=== PATIENT | male | born 1980 | race Caucasian/White ===

== ENCOUNTER 2024-09-08 09:12 | Outpatient (CLI) | payer OTHER, SELFPAY ==
--- NOTE | ~2024-09-08 | US_ITS ---
EXAMINATION: US soft tissue UE LT DATE: 09/08/2024 09:28 INDICATION: Left upper limb localized swelling, mass and lump. TECHNIQUE: Multiple grayscale and Doppler ultrasound images of the left upper limb were obtained. COMPARISON: None FINDINGS: There are 2 hyperechoic subcutaneous masses in the patient's area of concern in left upper arm measuring 1.1 x 0.3 x 0.9 cm and 1.0 x 0.3 x 1.4 cm, respectively. IMPRESSION: 1. Small subcutaneous masses in the patient's areas of concern in left upper arm. These findings are nonspecific, but are most likely inflammation. Reviewed, dictated and finalized at location A. IMPRESSION: 1. Small subcutaneous masses in the patient's areas of concern in left upper ar m. These findings are nonspecific, but are most likely inflammation.
== END 2024-09-08 09:13 | disposition home or self-care (01) ==
LOC: MICIMG 09:13
PROVIDERS: PCP Physician Assistant; Visit Provider Physician Assistant
DX: R22.9 Localized swelling, mass and lump, unspecified (principal)
CPT/HCPCS: 76882

== ENCOUNTER 2025-11-15 00:53 | Day surgery (SDC) | payer OTHER, SELFPAY ==
--- OUTSIDE RECORDS SUMMARY | 2020-01-19 01:00 | XMS_ITS | Continuity of Care Document ---
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 Name Role Phone Jaquelin Gabriel PT Unavailable Unavailable Procedures Procedure Date Progress Note Therapeutic Activities Neuromuscular Re-Ed Therapeutic Exercise Hot or Cold Pack Manual Therapy Ultrasound Therapeutic Activities Neuromuscular Re-Ed Therapeutic Exercise Manual Therapy Hot or Cold Pack Ultrasound Therapeutic Activities Neuromuscular Re-Ed Therapeutic Exercise Manual Therapy Hot or Cold Pack Ultrasound Therapeutic Activities Neuromuscular Re-Ed Therapeutic Exercise Manual Therapy Hot or Cold Pack Ultrasound Therapeutic Activities Neuromuscular Re-Ed Therapeutic Exercise Manual Therapy Hot or Cold Pack Ultrasound Neuromuscular Re-Ed Therapeutic Exercise Manual Therapy Hot or Cold Pack Ultrasound Neuromuscular Re-Ed Therapeutic Exercise Manual Therapy Hot or Cold Pack Ultrasound PT Evaluation Low Complexity Neuromuscular Re-Ed Therapeutic Exercise Hot or Cold Pack Manual Therapy Ultrasound Advance Directives Directive Yes / No Effective Date File Name No Information Encounters Encounter Description Practice Location Reason(s) For Visit Diagnoses Date Provider Providers Copied on Encounter [facility], [place], [place], [id number], [place] tel:[phone] [facility] No Information Morrill Jaquelin. . [facility], [place], [place], [id number], [place] tel:[phone] [facility] No Information Morrill Jaquelin. . [facility], [place], [place], [id number], [place] tel:[phone] [facility] No Information Morrill Jaquelin. . [facility], [place], [place], [id number], [place] tel:[phone] [facility] No Information Morrill Jaquelin. . [facility], [place], [place], [id number], [place] tel:[phone] [facility] No Information Morrill Jaquelin. . [facility], [place], [place], [id number], [place] tel:[phone] [facility] No Information Morrill Jaquelin. . [facility], [place], [place], [id number], [place] tel:[phone] [facility] No Information Morrill Jaquelin. . [facility], [place], [place], [id number], [place] tel:[phone] [facility] No Information Nery HammerAngel . Family History Family Member Type Diagnosis Age At Onset No Information Payers Payer name Insurance type Covered alliance party ID Jacquelyn tim(s) [employer] CI [id number] Social History Type Description Quantity Date Captured Comments Sex Male Smoking Status No Information Chief Complaint And Reason For Visit No Information Reason For Referral Reason For Referral No Information History Of Present Illness Encounter Date Complaint History Of Prese nt Illness No Information Functional Status Date Functional Assessmen t No Information Instructions Date Instruction Additional Infor suzie Giving encouragement to exercise Related to Overweight Assessments Type Assessment Date No Information Patient Care Teams Name Effective Dates (start - stop) Status Members No Information
[2025-11-12 08:33] VITALS: BMI 25.8
--- NOTE | 2025-11-12 08:42 | SUR.PREOP ---
[facility] has started construction of its new state of the art ER which will open Spring 2026. With this, we anticipate parking may be a challenge for some our surgical patients and families. Parking spaces are limited but are available for all Surgical, obstetrics, and ER patients sharing this lot. If you arrive and find you are having a hard time finding a parking space, please note that we understand the challenges, please drive around the hospital and park near Hospital Entrance 1. When you enter this entrance, you can ask a volunteer to direct or take you back to the surgical waiting area to check in. We appreciate everyone?s understanding of these expected challenges while we build for your future. Report to the Outpatient Waiting Room, entrance under the green pavilion located [address], at time 1230__ on date ___11/15/25____. Planned Procedure Time: ____1430____.? Time changes happen often and if your time is changed the preop area will call you the afternoon before. - You and your visitor will be asked to self-screen and do not enter if you have any COVID symptoms. Please call surgeon if you need to reschedule. - A mask is optional within the hospital at this time. Patients may have clear liquids (water, carbonated beverages, clear teas, apple juice) until 3 hours prior to surgery with a maximum of 20 ounces. - No food from midnight until time of surgery and no smoking, or chewing tobacco (or any form of nicotine). No chewing gum, candy or mints. Take only the following medications with a SIP of water on the morning of surgery: states takes everything at night DO NOT STOP ANY OF YOUR OTHER PRESCRIPTION MEDICATIONS PRIOR TO SURGERY EXCEPT THE FOLLOWING Hold all vitamins and supplements for 3 days per anesthesiologist. Medications to discontinue per physician NA Date to take last dose Please no make-up, nail norwegian, hairspray, perfume, deodorant, or body powder the day of surgery.? No jewelry (including any body piercings) or valuables the day of surgery, leave them at home.? Please take a shower or bath the night before, or the morning of, surgery with an antibacterial soap.? Wear comfortable, loose fitting clothing.? Children are encouraged to wear pajamas. - Jewelry must be removed prior to entering the operating room.? Rings and piercings that are not removed may be cut off. - The hospital will not accept responsibility for valuables.? - Please leave all valuables, including medications, at home the day of surgery. If you are going home after surgery, a licensed full service vending driver must drive you home.? - NO public transportation without another adult if you receive anesthesia. - We recommend that an adult stay with you for 24 hours following discharge. - We also recommend that you do not drive, make important decision, drink alcoholic beverages, or take any drugs that were not prescribed by your health care provider for at least 24 hours after your discharge time. Follow any additional instructions given to you from your surgeon. Telephone instructions given to ___patient Storm and asked if any additional questions and then verbalized understanding. Patient advised to call surgeon office or pre surgery nurse liaison [phone] if any additional questions.
[2025-11-15] VITALS (8 sets, daily range): BP systolic 103–144; BP diastolic 59–99; PULSE 78–94; RESP 12–20; TEMP 36.2–36.4; O2SAT 95–100; BMI 26.7
--- OUTSIDE RECORDS SUMMARY | 2025-11-15 00:54 | XMS_ITS | Data Portability ---
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 Not available 06/22/2024 17:10:37 09/06/2025 09/06/2025 Colonoscopy : Due Eye exams and dental visits up-to-date Lab orders due Not available 09/06/2025 15:01:19 Plan of Treatment Reminders Order Date Submit Date Provider Last Modified By Organization Details Last Modified Time Details Appointments ANY 15 2025 07:30A M LUCIA Valentine Not available Not available Not available Lab TSH + free T4, serum 2024 [employer] [facility], [address], [place], [address], 09/25/2025 03:10:43 lipid panel, serum 2024 025 [employer] [facility], [address], [place], [address], 09/25/2025 03:10:42 CBC w/ auto diff 2024 025 [employer] [facility], [address], [place], [address], 09/25/2025 03:10:44 CMP, serum or plasma 2024 025 [facility], [address], [place], [address], 09/25/2025 03:10:43 urinalysi s, dipstick, reflex micro 2024 025 [facility], [address], [place], [address], 09/25/2025 03:10:45 PSA, serum or plasma 2024 025 [facility], [address], [place], [address], 09/25/2025 03:10:44 HbA1c (hemoglob in A1c), blood 2024 025 [facility], [address], [place], [address], 09/25/2025 03:10:45 TSH + free T4, serum 2023 024 [facility], [address], [place], [address], 07/16/2024 11:56:14 CBC w/ auto diff 2023 024 [facility], [address], [place], [address], 07/16/2024 11:56:15 CMP, serum or plasma 2023 024 [facility], [address], [place], [address], 07/16/2024 11:56:14 vitamin B12 + folate, serum or blood 2023 024 [facility], [address], [place], [address], 07/16/2024 11:56:15 urinalysi s, dipstick, reflex micro 2023 024 [employer] [facility], [address], [place], [address], 07/16/2024 11:56:15 lipid panel, serum 2023 024 [facility], [address], [place], [address], 07/16/2024 11:56:14 PSA, serum or plasma 2023 024 [facility], [address], [place], [address], 07/16/2024 11:56:15 HbA1c (hemoglob in A1c), blood 2023 024 [employer] [facility], [address], [place], [address], 07/16/2024 11:56:14 Referral general surgeon referral 2024 025 [facility], [address] [place] [address] [address], [place], [address], 10/08/2025 12:46:13 Procedures colonosco py screening (PROC) 2024 025 [email or web address] [facility], [facility] [address], [place], [address], 11/09/2025 16:23:25 Surgeries None recorded. Imaging US, upper arm 2023 024 [email or web address] [facility], [address], [address], [place], [address], 10/05/2024 16:52:15 Medication Orders fenofibra te 54 mg tablet 2024 025 [id number], [address] [place], [place], [id number], 09/06/2025 14:17:10 Medrol (Lele) 4 mg tablets in a dose pack [address] [facility][id number], [address] [place], [place], [id number], 07/19/2025 13:08:[address] 10 mg tablet [address] [facility] #[id number], [address] [place], [place], [id number], 06/22/2024 17:07:20 albuterol sulfate HFA 90 mcg/actua tion aerosol inhaler 2023 024 [facility] #[id number], [address] [place], [place], [id number], 06/22/2024 17:07:18 Patient TargetsNo targets recorded. Patient Instructions Encounter Date Encounter Id Patient Instructions Last Modified By Organization Details Last Modified Time 06/22/2024 [id number] A healthy lifestyle: care instructions Not available 06/22/2024 17:07:10 01/11/2025 [id number] golfer's elbow: exercises Not available 01/11/2025 14:11:12 A healthy lifestyle: care instructions Not available 01/11/2025 14:11:12 Reason for Referral General Surgeon Referral for Umbilical hernia umbilical hernia, new onset. smaller, I have held off on imaging to get surgical opinion first. Referring Physician: Sarah Haskins, Internal Medicine, Encounter Date: 09/06/2025 Results Created Date Observation Date Name Description Value Unit Range Abnormal Flag Note LastModifiedBy Organization Detail LastModifiedTime 09/24/2009/25/2025 LIPID PANEL WITH RATIO S cholesterol, total 188 mg/dL <200 normal Not Available [facility] [address] [address] [place], [address], 09/25/2025 03:10:42 09/24/2009/25/2025 LIPID PANEL WITH RATIO S HDL cholesterol 48 mg/dL > or = 40 normal Not Available [facility] [address] [address] [place], [address], 09/25/2025 03:10:42 09/24/2009/25/2025 LIPID PANEL WITH RATIO S triglyceride s 81 mg/dL <150 normal Not Available [facility] [address] [address] [place], [address], 09/25/2025 03:10:42 09/24/2009/25/2025 LIPID PANEL WITH RATIO S LDL-choleste rol 122 mg/dL _(chris c) high Refer ence range : <100 Kirit able range <100 mg/dL for prima ry preve ntion ; <70 mg/dL for patie nts with CHD or diabe tic patie nts with > or = 2 CHD risk facto rs. LDL-C is now calcu lated using the Mita thurston-[facility] calcu sunshine n, which is a valid ated novel bevo d yungi rachel hodge r accur acy than the Fried grover equat ion in the estim ation of LDL-C . Mita thurston SS et al. DAYLIN. 2013; 310(1 9): 2061- 2068 (http ://ed ucati on.Qu Jyoti Corban Direct. com/f aq/FA Q164) Not Available [facility] [address] [place], [address], 09/25/2025 03:10:42 09/24/2009/25/2025 LIPID PANEL WITH RATIO S chol/HDLC ratio 3.9 (calc ) <5.0 normal Not Available [facility] [address] [place], [address], 09/25/2025 03:10:42 09/24/2009/25/2025 LIPID PANEL WITH RATIO S LDL/HDL ratio 2.5 (calc ) Below [place] Risk: <2.28 [place] Risk: 2.29- 4.90 Moder ate Risk: 4.91- 7.12 High Risk: >7.13 Not Available [address], [address], 09/25/2025 03:10:42 09/24/2009/25/2025 LIPID PANEL WITH RATIO S non HDL cholesterol 140 mg/dL _(chris c) <130 high For patie nts with diabe jose enrique plus 1 major ASCVD risk facto r, treat ing to a non-H DL-C goal of <100 mg/dL (LDL- C of <70 mg/dL ) is mansi terrell thernidhi peuti c optio n. Not Available [address], [address], 09/25/2025 03:10:42 09/24/2009/25/2025 TSH+F REE T4 TSH 1.42 mIU/L 0.40-4 .50 normal Not Available [address], [address], 09/25/2025 03:10:43 09/24/2009/25/2025 TSH+F REE T4 T4, free 1.3 NG/dL 0.8-1. 8 normal Not Available [address], [address], 09/25/2025 03:10:43 09/24/2009/25/2025 COMPR EHENS MARYSOL METAB OLIC PANEL glucose 99 mg/dL 65-99 normal Fasti ng refer ence inter yarelis Not Available [address], [address], 09/25/2025 03:10:43 09/24/2009/25/2025 COMPR EHENS MARYSOL METAB OLIC PANEL urea nitrogen (BUN) 21 mg/dL 7-25 normal Not Available [address] [address] [place], [address], 09/25/2025 03:10:43 09/24/2009/25/2025 COMPR EHENS MARYSOL METAB OLIC PANEL creatinine 1.19 mg/dL 0.60-1 .29 normal Not Available [address], [address], 09/25/2025 03:10:43 09/24/2009/25/2025 COMPR EHENS MARYSOL METAB OLIC PANEL eGFR 76 mL/mi n/1.7 3m2 > or = 60 normal Not Available [address], [address], 09/25/2025 03:10:43 09/24/2009/25/2025 COMPR EHENS MARYSOL METAB OLIC PANEL BUN/creatini ne ratio SEE NOTE: (calc ) 6-22 Not Repor valente: BUN and Creat inine are withi n refer ence range . Not Available [address], [address], 09/25/2025 03:10:43 09/24/20 25 09/25/2025 COMPR EHENS MARYSOL METAB OLIC PANEL sodium 138 mmol/ L 135-14 6 normal Not Available [address], [address], 09/25/2025 03:10:43 09/24/2009/25/2025 COMPR EHENS MARYSOL METAB OLIC PANEL potassium 4.2 mmol/ L 3.5-5. 3 normal Not Available [address], [address], 09/25/2025 03:10:43 09/24/2009/25/2025 COMPR EHENS MARYSOL METAB OLIC PANEL chloride 102 mmol/ L 98-110 normal Not Available [address], [address], 09/25/2025 03:10:43 09/24/2009/25/2025 COMPR EHENS MARYSOL METAB OLIC PANEL carbon dioxide 29 mmol/ L 20-32 normal Not Available [address], [address], 09/25/2025 03:10:43 09/24/2009/25/2025 COMPR EHENS MARYSOL METAB OLIC PANEL calcium 9.5 mg/dL 8.6-10 .3 normal Not Available [address], [address], 09/25/2025 03:10:43 09/24/2009/25/2025 COMPR EHENS MARYSOL METAB OLIC PANEL protein, total 6.4 g/dL 6.1-8. 1 normal Not Available [address], [address], 09/25/2025 03:10:43 09/24/2009/25/2025 COMPR EHENS MARYSOL METAB OLIC PANEL albumin 4.3 g/dL 3.6-5. 1 normal Not Available [address], [address], 09/25/2025 03:10:43 09/24/2009/25/2025 COMPR EHENS MARYSOL METAB OLIC PANEL globulin 2.1 g/dL_ (calc ) 1.9-3. 7 normal Not Available [address], [address], 09/25/2025 03:10:43 09/24/2009/25/2025 COMPR EHENS MARYSOL METAB OLIC PANEL albumin/glob ulin ratio 2.0 (calc ) 1.0-2. 5 normal Not Available [address], [address], 09/25/2025 03:10:43 09/24/2009/25/2025 COMPR EHENS MARYSOL METAB OLIC PANEL bilirubin, total 0.6 mg/dL 0.2-1. 2 normal Not Available [address], [address], 09/25/2025 03:10:43 09/24/2009/25/2025 COMPR EHENS MARYSOL METAB OLIC PANEL alkaline phosphatase 42 U/L 36-130 normal Not Available [address], [address], 09/25/2025 03:10:43 09/24/2009/25/2025 COMPR EHENS MARYSOL METAB OLIC PANEL AST 21 U/L 10-40 normal Not Available [address], [address], 09/25/2025 03:10:43 09/24/2009/25/2025 COMPR EHENS MARYSOL METAB OLIC PANEL ALT 20 U/L 9-46 normal Not Available [address], [address], 09/25/2025 03:10:43 09/24/2009/25/2025 CBC (INCL UDES DIFF/ PLT) white blood cell count 3.9 thous and/u L 3.8-10 .8 normal Not Available [address], [address], 09/25/2025 03:10:44 09/24/2009/25/2025 CBC (INCL UDES DIFF/ PLT) red blood cell count 4.65 maria elena on/uL 4.20-5 .80 normal Not Available [address], [address], 09/25/2025 03:10:44 09/24/2009/25/2025 CBC (INCL UDES DIFF/ PLT) hemoglobin 15.8 g/dL 13.2-1 7.1 normal Not Available [address], [address], 09/25/2025 03:10:44 09/24/2009/25/2025 CBC (INCL UDES DIFF/ PLT) hematocrit 46.9 % 38.5-5 0.0 normal Not Available [address], [address], 09/25/2025 03:10:44 09/24/2009/25/2025 CBC (INCL UDES DIFF/ PLT) MCV 100.9 fL 80.0-1 00.0 high Not Available [address], [address], 09/25/2025 03:10:44 09/24/2009/25/2025 CBC (INCL UDES DIFF/ PLT) MCH 34.0 pg 27.0-3 3.0 high Not Available [address], [address], 09/25/2025 03:10:44 09/24/2009/25/2025 CBC (INCL UDES DIFF/ PLT) MCHC 33.7 g/dL 32.0-3 6.0 normal For adult s, a sligh t decre ase in the calcu lated MCHC value (in the range of 30 to 32 g/dL) is most likel y not clini lilly signi ficbert t; burke er, it shoul d be inter prete d with cauti on in corre latio n with other red cell jose eters and the patie nt's clini chris condi tion. Not Available [address], [address], 09/25/2025 03:10:44 09/24/2009/25/2025 CBC (INCL UDES DIFF/ PLT) RDW 12.3 % 11.0-1 5.0 normal Not Available [address] [place], [address], 09/25/2025 03:10:44 09/24/2009/25/2025 CBC (INCL UDES DIFF/ PLT) platelet count 264 thous and/u L 140-40 0 normal Not Available [address], [address], 09/25/2025 03:10:44 09/24/2009/25/2025 CBC (INCL UDES DIFF/ PLT) MPV 9.3 fL 7.5-12 .5 normal Not Available [address], [address], 09/25/2025 03:10:44 09/24/2009/25/2025 CBC (INCL UDES DIFF/ PLT) absolute neutrophils 2469 cells /uL 1500-7 800 normal Not Available [address], [address], 09/25/2025 03:10:44 09/24/2009/25/2025 CBC (INCL UDES DIFF/ PLT) absolute lymphocytes 901 cells /uL 850-39 00 normal Not Available [address], [address], 09/25/2025 03:10:44 09/24/2009/25/2025 CBC (INCL UDES DIFF/ PLT) absolute monocytes 390 cells /uL 200-95 0 normal Not Available [address], [address], 09/25/2025 03:10:44 09/24/2009/25/2025 CBC (INCL UDES DIFF/ PLT) absolute eosinophils 121 cells /uL 15-500 normal Not Available [address], [address], 09/25/2025 03:10:44 09/24/2009/25/2025 CBC (INCL UDES DIFF/ PLT) absolute basophils 20 cells /uL 0-200 normal Not Available [address], [address], 09/25/2025 03:10:44 09/24/2009/25/2025 CBC (INCL UDES DIFF/ PLT) neutrophils 63.3 % normal Not Available [address], [address], 09/25/2025 03:10:44 09/24/2009/25/2025 CBC (INCL UDES DIFF/ PLT) lymphocytes 23.1 % normal Not Available [address], [address], 09/25/2025 03:10:44 09/24/2009/25/2025 CBC (INCL UDES DIFF/ PLT) monocytes 10.0 % normal Not Available [address], [address], 09/25/2025 03:10:44 09/24/2009/25/2025 CBC (INCL UDES DIFF/ PLT) eosinophils 3.1 % normal Not Available [address], [address], 09/25/2025 03:10:44 09/24/2009/25/2025 CBC (INCL UDES DIFF/ PLT) basophils 0.5 % normal Not Available [address], [address], 09/25/2025 03:10:44 09/24/2009/25/2025 PSA, TOTAL PSA, total 1.88 NG/mL < or = 4.00 normal The total PSA value from this assay syste m is stand ardiz ed again st the WHO stand thomas. The test resul t will be appro ximat minerva 20% lower when jose red to the equim olar- stand ardiz ed total PSA (Baeza man Coult er). Jose rison of seria l PSA resul ts shoul d be inter prete d with this fact in mind. This test was perfo rmed using the Sieme ns chemi lumin escen t metho d. Value s obtai brooke from diffe rent assay metho ds canno t be used inter archuleta eably . PSA level s, regar dless of value , shoul d not be inter prete d as absol will evide nce of the prese nce or absen ce of disea se. Not Available [facility] [address] [place], [address], 09/25/2025 03:10:44 09/24/2009/25/2025 HEMOG LOBIN A1C hemoglobin A1C 5.2 %_of_ total _HGB <5.7 normal For the purpo se of scremelchor saini for the prese nce of diabe jose enrique: <5.7% Consi stent with the absen ce of diabe jose enrique 5.7-6 .4% Consi stent with incre ased risk for diabe jose enrique (pred iabet es) > or =6.5% Consi stent with diabe jose enrique This assay resul t is consi stent with a decre ased risk of diabe jose enrique. Curre ntly, no conse nsus exist s mallory ramos use of hemog lobin A1c for diagn osis of diabe jose enrique in child romi. Accor ding to Ameri can Diabe jose enrique Assoc iatio n (ADA) guide lines , hemog lobin A1c <7.0% repre sents optim al contr ol in non-p regna nt diabe tic patie nts. Diffe rent metri cs may apply to speci fic patie nt popul ation s. Stand ards of Medic al Care in Diabe jose enrique(A DA). Not Available [facility] [address] [place], [address], 09/25/2025 03:10:44 09/24/2009/25/2025 URINA LYSIS REFLE X color YELLOW yellow normal Not Available [facility] [address] [place], [address], 09/25/2025 03:10:45 09/24/2009/25/2025 URINA LYSIS REFLE X appearance CLEAR clear normal Not Available [address], [address], 09/25/2025 03:10:45 09/24/2009/25/2025 URINA LYSIS REFLE X specific gravity 1.019 1.001- 1.035 normal Not Available [address], [address], 09/25/2025 03:10:45 09/24/2009/25/2025 URINA LYSIS REFLE X pH 5.5 5.0-8. 0 normal Not Available [address], [address], 09/25/2025 03:10:45 09/24/2009/25/2025 URINA LYSIS REFLE X glucose NEGATI VE negati ve normal Not Available [address], [address], 09/25/2025 03:10:45 09/24/2009/25/2025 URINA LYSIS REFLE X bilirubin NEGATI VE negati ve normal Not Available [address], [address], 09/25/2025 03:10:45 09/24/2009/25/2025 URINA LYSIS REFLE X ketones NEGATI VE negati ve normal Not Available [address], [address], 09/25/2025 03:10:45 09/24/2009/25/2025 URINA LYSIS REFLE X occult blood NEGATI VE negati ve normal Not Available [address], [address], 09/25/2025 03:10:45 09/24/2009/25/2025 URINA LYSIS REFLE X protein NEGATI VE negati ve normal Not Available [facility] [address] [address] [place], [address], 09/25/2025 03:10:45 09/24/2009/25/2025 URINA LYSIS REFLE X nitrite NEGATI VE negati ve normal Not Available [facility] [address] [address] [place], [address], 09/25/2025 03:10:45 09/24/2009/25/2025 URINA LYSIS REFLE X leukocyte esterase NEGATI VE negati ve normal Not Available [facility] [address] [place], [address], 09/25/2025 03:10:45 09/09/2009/08/2024 US, upper arm No observ ation record ed. [facility] ([facility]) [address], [place], [address], 09/10/2024 12:15:54 Result Notes None recorded. Problems Name Problem SNOMED Code Status Onset Date Resolution Date Notes Provider Name and Address Organization Details Recorded Time Long-term drug therapy Active 2023 LUCIA Valentine Attn: Dhruv g,[address] [facility], [place], [address], [place] [facility] 4 23:05:37 Reactive airway disease 833012387439 Active 2023 LUCIA Valentine Attn: Accountin g,[address] [facility], [place], [address], [place] [facility] 4 23:05:55 Seasonal allergic rhinitis 002326347 Active 2023 LUCIA Valentine Attn: Accountin g,[address] [facility], [place], [address], [place] [facility] 4 23:06:01 Environment al allergy 413364401 Active 2023 LUCIA Valentine Attn: Accountin g,[address] [facility], [place], [address], [place] [facility] 4 23:06:10 Gastroesoph ageal reflux disease without esophagitis 418901851 Active 2023 LUCIA Valentine Attn: Accountin g,[address] [place], [address], [place] [facility] 4 23:06:12 Subcutaneou s nodule 74413719 Active 2023 LUCIA Valentine Attn: Accountin g,[address] [place], [address], [place] [facility] 4 23:06:33 Body mass index 25-29 - overweight 543167354 Active 2023 LUCIA Valentine Attn: Accountin g,[address] [place], [address], [place] [facility] 4 23:06:37 Overweight 595047283 Active 2024 LUCIA Valentine Attn: Dhruv g,[address] [place], [address], [place] [facility] 5 17:21:10 Right medial elbow tendinopath y 0403033833841 09 Active 2024 LUCIA Valentine Attn: Accountin g,[address] [place], [address], [place] [facility] 5 17:21:12 Overweight in adulthood with body mass index of 25 or more but less than 30 480322542 Active 2024 LUCIA Valentine Attn: Dhruv g,[address] [place], [address], [place] [facility] 5 14:16:15 Umbilical hernia 850014049 Active 2024 LUCIA Valentine Attn: Dhruv g,[address] [place], [address], [facility] 15:01:02 Problem Notes None recorded. Procedures Surgical History Date Name Laterality Status Provider Name and Address Organization Details Recorded Time Knee Surgery completed Nathalie Salinas MA [facility] 06/22/2024 16:46:12 Imaging Results None recorded. Procedure Notes None recorded. Medical Equipment None Reported. Allergies No known drug allergies Medications Name Sig Start Date Stop Date Status Note LastModified by Organization Details LastModified Time Medrol (Lele) 4 mg tablets in a dose pack take as directed 07/19 completed Not Available Not Available Not Available metronidazo le 500 mg tablet TAKE 1 TABLET BY MOUTH EVERY 8 HOURS. DO NOT DRINK ANY ALCOHOL WHILE ON ANTIBIOTI C 09/06 completed Not Available Not Available Not Available ciprofloxac in 500 mg tablet TAKE 1 TABLET BY MOUTH EVERY 12 HOURS 09/06 completed Not Available Not Available Not Available montelukast 10 mg tablet TAKE 1 TABLET BY MOUTH DAILY active Not Available Not Available No t Available levofloxaci n 500 mg tablet 06/22 completed Not Available Not Available Not Available albuterol sulfate HFA 90 mcg/actuati on aerosol inhaler INHALE 2 PUFFS BY MOUTH EVERY 4 HOURS NEEDED active Not Available Not Available No t Available fluticasone propionate 50 mcg/actuati on nasal spray,suspe nsion active Not Available Not Available Not Available Prilosec OTC 20 mg tablet,josette yed release Take 1 tablet every day by oral route. active Not Available Not Available No t Available fenofibrate 54 mg tablet TAKE 1 TABLET BY MOUTH EVERY DAY active Not Available Not Available No t Available Vitals Date Recorded Respiratory rate Provider Name a nd Address Organization Details Last Updated DateTime 01/11/2025 16 /min LUCIA Valentine Attn: Accounting,[address] [facility], [place], [address], [facility] 01/11/2025 14:12:00 Date Recorded Body height Body mass index (BMI) Body weight Oxygen saturation Heart rate Systolic And Diastolic Provider Name and Address Organization Details Last Updated DateTime 180.98 cm 27 kg/m2 55016.5 1 g 97 % 77 /min 120/82 mm[Hg] Nathalie Salinas MA [facility] 5 14:00:06 Date Recorded Systolic And Diastolic Provider Name and Address Organization Details Last Updated DateTime 06/22/2024 120/80 mm[Hg] LUCIA Valentine Attn: Accounting,[address] [place], [address], [facility] 06/22/2024 17:05:18 Date Recorded Body height Respiratory rate Body mass index (BMI) Body weight Oxygen saturation Heart rate Systolic And Diastolic Provider Name and Address Organization Details Last Updated DateTime 180.98 cm 20 /min 26.7 kg/m2 30125.4 7 g 98 % 78 /min 118/82 mm[Hg] Nathalie Salinas MA [facility] 16:34:24 Date Recorded Respiratory rate Systolic And Diastolic Provider Name and Address Organization Details Last Updated DateTime 09/06/2025 16 /min 140/90 mm[Hg] LUCIA Valentine Attn: Accounting, [place], [address], [facility] 09/06/2025 14:34:52 Date Recorded Body height Body mass index (BMI) Body weight Oxygen saturation Heart rate Systolic And Diastolic Provider Name and Address Organization Details Last Updated DateTime 180.98 cm 26.5 kg/m2 74013.5 g 97 % 86 /min 122/80 mm[Hg] Nathalie Salinas MA [facility] 14:15:05 Social History Question Answer Notes LastModified by Organizat ion Details LastModified Time Tobacco Smoking Status Former Smoker quit 18 years ago Nathalie Salinas MA null, [facility] 06/22/2024 16:29:54 Do You Have An Advance Directive? No Information not available 06/22/2024 Are You Blind Or Do You Have Difficulty Seeing? No Glasses Information not available 06/22/2024 What Is Your Level Of Caffeine Consumption? Occasional Coffee Information not available 06/22/2024 In The 14 Days Before Symptom Onset, Have You Had Close Contact With A Laboratory-confir med COVID-19 While That Case Was Ill? No Information not available 06/19/2024 In The 14 Days Before Symptom Onset, Have You Had Close Contact With A Person Who Is Under Investigation For COVID-19 While That Person Was Ill? No Information not available 06/19/2024 Have You Been To An Area Known To Be High Risk For COVID-19? No Information not available 06/19/2024 Are You Deaf Or Do You Have Serious Difficulty Hearing? No Left Ear Information not available 06/22/2024 What Type Of Diet Are You Following? REGULAR Information not available 06/22/2024 Are There Any Guns Present In Your Home? No Information not available 06/22/2024 What Was The Date Of Your Most Recent Tobacco Screening? 09/06/2025 Information not available 09/06/2025 What Is Your Current Pack Years? 20-29packyear s Information not available 06/22/2024 Do You Use Your Seat Belt Or Car Seat Routinely? Yes Information not available 06/19/2024 Do You Have Smoke And Carbon Monoxide Detectors In Your Home? Yes Information not available 06/19/2024 How Much Tobacco Do You Smoke? No Information not available 06/22/2024 Do You Use Sunscreen Routinely? Yes Information not available 06/22/2024 Has Tobacco Cessation Counseling Been Provided? Yes Information not available 06/19/2024 On What Date Was Tobacco Cessation Counseling Provided? 09/06/2025 Information not available 09/06/2025 How Many Years Have You Smoked Tobacco? 20 Information not available 06/22/2024 Sex: Male Functional Status Question Answer Note LastModified by Organizat ion Details LastModified Time Do you use any illicit or recreational drugs? No Information not available 06/22/2024 Do you or have you ever used any other forms of tobacco or nicotine? No Information not available 06/22/2024 What is your level of alcohol consumption? Occasional Information not available 06/22/2024 Are you currently employed? Yes Information not available 01/11/2025 Are you able to care for yourself independently? Yes Information not available 06/19/2024 What is your exercise level? Moderate Information not available 06/22/2024 Mental Status None recorded. Family History Relationship Description Onset Age of this Age Resolved Age Notes LastModified by Organization Details LastModified Time Father Hypercholest erolemia tcarterma Not available 2023 16:29:22 Medical History Condition Response Acid Reflux (GERD) Y Cancer Y Asthma Y Allergies Y Immunizations Vaccine Type Date Status Note Provider Nam e and Address Organization Details Recorded Time Influenza, split virus, trivalent, PF 08/27/2024 completed Nathalie Salinas MA [place], [place] - [facility] 01/11/2025 13:58:28 Past Encounters Encounter ID Performer Location Encounter Start Date Encounter Closed Date Diagnosis/Indication Diagnosis SNOMED-CT Code Diagnosis ICD10 Code Diagnosis IMO Codes Diagnosis Note [id number] Iván Hernandez MD [facility] [place] [address] [place] [address] 06/22/2024 16:16:47 06/22/2024 17:40:41 Body mass index 25-29 - overweight 120427802 Z68.26 BMI is 26.7 Overweight 822268120 E66 .3 Subcutaneous nodule 9532 5000 R22.9 Refer for ultrasound of left upper arm to evaluate [address] nodules that are lipoma-lik e in features Adult heal th examination 636076468 Z00.01 Annual wellness exam completed Gastroesop hageal reflux disease without esophagitis 487740470 K21.9 takes prilosec 20mg OTC daily. Very stable Environmental allergy 42 6971646 T78.49XS Treatment as above with Singulair Seasonal a llergic rhinitis 069627687 J30.2 Refill Singulair 10 mg daily for seasonal allergic rhinitis Reactive a irway disease 6486535273 06 J45.909 Refill on albuterol sulfate inhaler for stable reactive airway that is related to environmen j carlos allergy triggers Cholesterol screening 27 9639037 Z13.220 Fasting lipid panel due Screening for malignant neoplasm of prostate 251823840 Z12.5 PSA annual screening due Diabetes m ellitus screening 786187147 Z13.1 A1c annual screening ordered Long-term drug therapy 799823075 Z79.899 cmp, cbc and b12, folate and urinalysis labs are due Thyroid di sorder screening 944747236 Z13.29 Routine thyroid panel ordered [id number] Iván Hernandez MD [facility] [employer] [address] [place] [address] 01/11/2025 13:45:51 01/11/2025 14:19:45 Body mass index 25-29 - overweight 261488224 Z68.26 BMI is 26.7 Overweight 096148086 E66 .3 Right medi al elbow tendinopathy 3145984680 56852 M77.01 Start Medrol Dosepak and exercises given for medial epicondyli tis [id number] Iván Hernandez MD [facility] [employer] [address] [place] [address] 09/06/2025 14:05:32 09/06/2025 14:52:54 Adult health examination 703136511 Z00.01 Annual wellness exam completed Gastroesop hageal reflux disease without esophagitis 605817575 K21.9 takes prilosec 20mg OTC daily. Very stable Seasonal a llergic rhinitis 173932107 J30.2 Refill Singulair 10 mg daily for seasonal allergic rhinitis Environmental allergy 42 7294442 T78.49XS Treatment as above with Singulair Reactive a irway disease 1196704136 06 J45.909 Refill on albuterol sulfate inhaler for stable reactive airway that is related to environmen j carlos allergy triggers Cholesterol screening 27 9845647 Z13.220 Fasting lipid panel due Screening for malignant neoplasm of prostate 825690099 Z12.5 PSA annual screening due Diabetes m ellitus screening 658495726 Z13.1 A1c annual screening ordered Long-term drug therapy 988288852 Z79.899 cmp, cbc and b12, folate and urinalysis labs are due Thyroid di sorder screening 763049050 Z13.29 Routine thyroid panel ordered Mixed hyperlipidemia 267 598630 E78.2 Refill on fenofibrat e 54 mg daily. Due for fasting lipid panel. Overweight in adulthood with body mass index of 25 or more but less than 30 568605963 E66.3 Z68.26 5078459920 BMI is 26.7 Screening for malignant neoplasm of colon 103943139 Z12.11 625930 Refer for baseline colonoscop y screening to [facility] [place] location Umbilical hernia 7587717 07 K42.9 [id number] Refer to general surgery for newer onset of small umbilical hernia defect Health Concerns Section Related Observation LastModified by Organization Detai ls LastModified Time None Recorded Concern Status LastModified by Organization Details LastModified Time None Recorded Advance Directives Directive N: Payers Insurance Date Sequence Insurance Name Policy Number Policy Hadley Covered Member ID Hadley Member ID Guarantor Name 09/06/2025 1 [employer] - [employer] Nadia Pont [id number] OI Storm Pont 09/06/2025 1 [employer] - [employer] - OPEN ACCESS Storm Pont [id number] OI Storm Pont Notes Date Note Type Note Provider Name and Address Organization Details Recorded Time 4 text/htm l Patient is here for annual wellness exam. Patient is due for labs Seasonal allergies and environmental allergies-patient continues to struggle with some symptoms. He does have Singulair 10 mg daily and albuterol sulfate inhaler that he takes for reactive airway that is from his allergies. This regimen usually keeps him pretty controlled.. GERD without esophagitis-patient is stable on Prilosec oewd-ony-acecvki 20 mg daily Subcutaneous nodule in the left upper arm that are small but palpable. He would like to have these looked at LUCIA Valentine Attn: Accounting[address] [place], [address], [facility] 07/01/2024 23:07:09 5 text/htm l Musculoskeletal PainReported by PatientHPIFor quality, patient reportssharpanddull. For severity, patient reportsworsening. For location, patient reportsright elbow. For duration, patient reportspresent <1 month. For timing, patient reportsconstant. For context, patient reportsoveruseandunusual activity. For aggravating factors, patient reportsmovement/positioninga ndtwisting. For associated symptoms, patient reportsno fever,no weak limbs, andno tingling. LUCIA Valentine Attn: Accounting[address] [place], [address], [facility] 01/30/2025 17:21:29 5 text/htm l Patient is here for annual wellness exam. Patient is due for labs Patient is also on male testosterone replacement [facility]. Seasonal allergies and environmental allergies-patient continues to struggle with some symptoms. He does have Singulair 10 mg daily and albuterol sulfate inhaler that he takes for reactive airway that is from his allergies. This regimen usually keeps him pretty controlled.. GERD without esophagitis-patient is stable on Prilosec duab-xui-jkggssk 20 mg daily Patient has a protruding area that is in the last month coming from his belly button area. No injury no straining no change in working out. No discomfort. LUCIA Valentine Attn: Accounting[address] [facility], [place], [address], [facility] 09/06/2025 15:01:35
--- OUTSIDE RECORDS SUMMARY | 2025-11-15 00:54 | XMS_ITS | Clinical Summary ---
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 Name Role Phone Sarah Childers [facility] Pr ovider Allergies No known active allergies Medications fenofibrate (TRICOR) 54 mg tablet Take 1 tablet (54 mg total) by mouth nightly 05/07/2025 Active montelukast (SINGULAIR) 10 mg tablet Take 1 tablet (10 mg total) by mouth daily Active albuterol HFA (PROVENTIL HFA,VENTOLIN HFA,PROAIR HFA) 90 mcg/actuation inhaler Inhale 2 puffs Active Active Problems No known active problems Social History Tobacco Use Types Packs/Day Years Used Date Smoking Tobacco: Never Assessed Sex and Gender Information Value Date Recorded Sex Assigned at Not on file Legal Sex Male 11:13 AM CDT Gender Identity Not on file Sexual Orientation Not on file Last Filed Vital Signs Vital Sign Reading Time Taken Comments Blood Pressure 132/84 07/06/2025 4:07 PM CDT Pulse 85 07/06/2025 4:07 PM CDT Temperature 36.6 C (97.8 F) 07/06/2025 4:07 PM CDT Respiratory Rate 18 07/06/2025 4:07 PM CDT Oxygen Saturation 98% 07/06/2025 4:07 PM CDT Inhaled Oxygen Concentration - - Weight 87.5 kg (193 lb) 07/06/2025 4:07 PM CDT Height 180.3 cm (5' 11) 07/06/2025 4:07 PM CDT Body Mass Index 26.92 07/06/2025 4:07 PM CDT Plan of Treatment Health Maintenance Due Date Last Done Comments Colon Cancer Screening-Colonoscopy 1979 Depression Screening 1979 Hepatitis C Screening 1979 DTaP/Tdap/Td Vaccine (1 - Tdap) 1990 Hepatitis B Screening 1997 Regular Well Visit/Exam 18-64 1997 Pneumococcal vaccine <65 (1 of 2 - PCV) 1998 Covid-19 Vaccine (3 - 2024-2 6 season) 2025 03/29/2022, 02/23/2021 Influenza Vaccine (#1) 2025 08/27/2024 HPV Vaccines Aged Out No longer eligi ble based on patient's age to complete this topic Insurance [facility] [id number] Care Teams 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
--- OUTSIDE RECORDS SUMMARY | 2025-11-15 00:55 | XMS_ITS | Continuity of Care Document ---
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 Role Phone SARAH CHILDERS Primary Care Provider Unavailab le Assessment Encounter Date Assessment Date Assessment LastModified by Organization Details LastModified Time 09/06/2025 09/06/2025 Colonoscopy : Due Eye exams and dental visits up-to-date Lab orders due Not available 09/06/2025 15:01:19 Plan of Treatment Reminders Order Date Submit Date Provider Last Modified By Organization Details Last Modified Time Details Appointments ANY 15 2025 07:30A M LUCIA Valentine Not available Not available Not available Lab TSH + free T4, serum 2024 025 [employer] [facility], [address], [place], [address], 09/25/2025 03:10:43 lipid panel, serum 2024 025 [employer] [facility], [address], [place], [address], 09/25/2025 03:10:42 CBC w/ auto diff 2024 025 [employer] [facility], [address], [place], [address], 09/25/2025 03:10:44 CMP, serum or plasma 2024 025 [employer] [facility], [address], [place], [address], 09/25/2025 03:10:43 urinalysi s, dipstick, reflex micro 2024 025 [employer] [facility], [address], [place], [address], 09/25/2025 03:10:45 PSA, serum or plasma 2024 [employer] [facility], [address], [place], [address], 09/25/2025 03:10:44 HbA1c (hemoglob in A1c), blood 2024 025 [employer] [facility], [address], [place], [address], 09/25/2025 03:10:45 Referral general surgeon referral 2024 [facility] - General Surgery, [address] [place] [address] [address], [place], [address], 10/08/2025 12:46:13 Procedures colonosco py screening (PROC) 2024 025 [email or web address], [address] [place] [address], [place], [address], 11/09/2025 16:23:25 Surgeries None recorded. Imaging None recorded. Medication Orders fenofibra te 54 mg tablet 2024 025 [id number], [address], [place], [id number], 09/06/2025 14:17:10 Patient TargetsNo targets recorded. Patient InstructionsNo instructions recorded. Reason for Referral General Surgeon Referral for Umbilical hernia umbilical hernia, new onset. smaller, I have held off on imaging to get surgical opinion first. Referring Physician: Sarah Childers, Internal Medicine, Encounter Date: 09/06/2025 Results Created Date Observation Date Name Description Value Unit Range Abnormal Flag Note LastModifiedBy Organization Detail LastModifiedTime 09/24/2009/25/2025 LIPID PANEL WITH RATIO S cholesterol, total 188 mg/dL <200 normal Not Available [address] [address] [place], [address], 09/25/2025 03:10:42 09/24/2009/25/2025 LIPID PANEL WITH RATIO S HDL cholesterol 48 mg/dL > or = 40 normal Not Available [facility] [address] [place], [address], 09/25/2025 03:10:42 09/24/2009/25/2025 LIPID PANEL WITH RATIO S triglyceride s 81 mg/dL <150 normal Not Available [facility] [address] [address] [place], [address], 09/25/2025 03:10:42 09/24/2009/25/2025 LIPID PANEL WITH RATIO S LDL-choleste rol 122 mg/dL _(chris c) high Refer ence range : <100 Kirit able range <100 mg/dL for prima ry preve ntion ; <70 mg/dL for patie nts with CHD or diabe tic patie nts with > or = 2 CHD risk facto rs. LDL-C is now calcu lated using the Mita n-Hop kins blu gonsalez n, which is a valid ated novel bevo d coy hodge r accur acy than the Fried grover equat ion in the estim ation of LDL-C . Mita thurston SS et al. DAYLIN. 2013; 310(1 9): 2061- 2068 (http ://ed ucati on.Qu Jyoti resendez tics. com/f aq/FA Q164) Not Available [facility] [address], [place], [address], 09/25/2025 03:10:42 09/24/2009/25/2025 LIPID PANEL WITH RATIO S chol/HDLC ratio 3.9 (calc ) <5.0 normal Not Available [address], [address], 09/25/2025 03:10:42 09/24/2009/25/2025 LIPID PANEL WITH RATIO S LDL/HDL ratio 2.5 (calc ) Below Grants ge Risk: <2.28 Grants ge Risk: 2.29- 4.90 Moder ate Risk: 4.91- 7.12 High Risk: >7.13 Not Available [address] [address] [place], [address], 09/25/2025 03:10:42 09/24/2009/25/2025 LIPID PANEL WITH RATIO S non HDL cholesterol 140 mg/dL _(chris c) <130 high For patie nts with diabe jose enrique plus 1 major ASCVD risk facto r, treat ing to a non-H DL-C goal of <100 mg/dL (LDL- C of <70 mg/dL ) is consi dered a thera peuti c optio n. Not Available [address], [address], 09/25/2025 03:10:42 09/24/2009/25/2025 TSH+F REE T4 TSH 1.42 mIU/L 0.40-4 .50 normal Not Available [address], [address], 09/25/2025 03:10:43 09/24/2009/25/2025 TSH+F REE T4 T4, free 1.3 NG/dL 0.8-1. 8 normal Not Available [address], [address], 09/25/2025 03:10:43 09/24/2009/25/2025 COMPR EHENS MARYSOL METAB OLIC PANEL glucose 99 mg/dL 65-99 normal Fasti ng refer ence inter yarelis Not Available [address], [place], [address], 09/25/2025 03:10:43 09/24/2009/25/2025 COMPR EHENS MARYSOL METAB OLIC PANEL urea nitrogen (BUN) 21 mg/dL 7-25 normal Not Available [address] [address] [place], [address], 09/25/2025 03:10:43 09/24/2009/25/2025 COMPR EHENS MARYSOL METAB OLIC PANEL creatinine 1.19 mg/dL 0.60-1 .29 normal Not Available [address] [address] [place], [address], 09/25/2025 03:10:43 09/24/2009/25/2025 COMPR EHENS MARYSOL METAB OLIC PANEL eGFR 76 mL/mi n/1.7 3m2 > or = 60 normal Not Available [address] [address] [place], [address], 09/25/2025 03:10:43 09/24/2009/25/2025 COMPR EHENS MARYSOL METAB OLIC PANEL BUN/creatini ne ratio SEE NOTE: (calc ) 6-22 Not Repor valente: BUN and Creat inine are withi n refer ence range . Not Available [address] [address] [place], [address], 09/25/2025 03:10:43 09/24/2009/25/2025 COMPR EHENS MARYSOL METAB OLIC PANEL sodium 138 mmol/ L 135-14 6 normal Not Available [employer] [address] [address] [place], [address], 09/25/2025 03:10:43 09/24/2009/25/2025 COMPR EHENS MARYSOL METAB OLIC PANEL potassium 4.2 mmol/ L 3.5-5. 3 normal Not Available [employer] [address] [address] [place], [address], 09/25/2025 03:10:43 09/24/2009/25/2025 COMPR EHENS MARYSOL METAB OLIC PANEL chloride 102 mmol/ L 98-110 normal Not Available [address], [address], 09/25/2025 03:10:43 09/24/2009/25/2025 COMPR EHENS MARYSOL METAB OLIC PANEL carbon dioxide 29 mmol/ L 20-32 normal Not Available [address], [address], 09/25/2025 03:10:43 09/24/2009/25/2025 COMPR EHENS MARYSOL METAB OLIC PANEL calcium 9.5 mg/dL 8.6-10 .3 normal Not Available [address], [address], 09/25/2025 03:10:43 09/24/2009/25/2025 COMPR EHENS MARYSOL METAB OLIC PANEL protein, total 6.4 g/dL 6.1-8. 1 normal Not Available [address], [address], 09/25/2025 03:10:43 09/24/20 25 09/25/2025 COMPR EHENS MARYSOL METAB OLIC PANEL albumin 4.3 g/dL 3.6-5. 1 normal Not Available [address], [address], 09/25/2025 03:10:43 09/24/2009/25/2025 COMPR EHENS MARYSOL METAB OLIC PANEL globulin 2.1 g/dL_ (calc ) 1.9-3. 7 normal Not Available [address], [address], 09/25/2025 03:10:43 09/24/2009/25/2025 COMPR EHENS MARYSOL METAB OLIC PANEL albumin/glob ulin ratio 2.0 (calc ) 1.0-2. 5 normal Not Available [address], [address], 09/25/2025 03:10:43 09/24/2009/25/2025 COMPR EHENS MARYSOL METAB OLIC PANEL bilirubin, total 0.6 mg/dL 0.2-1. 2 normal Not Available [address], [address], 09/25/2025 03:10:43 09/24/2009/25/2025 COMPR EHENS MARYSOL METAB OLIC PANEL alkaline phosphatase 42 U/L 36-130 normal Not Available [facility] [employer] [address], [address], 09/25/2025 03:10:43 09/24/2009/25/2025 COMPR EHENS MARYSOL METAB OLIC PANEL AST 21 U/L 10-40 normal Not Available [address], [address], 09/25/2025 03:10:43 09/24/2009/25/2025 COMPR EHENS MARYSOL METAB OLIC PANEL ALT 20 U/L 9-46 normal Not Available [address], [address], 09/25/2025 03:10:43 09/24/2009/25/2025 CBC (INCL UDES DIFF/ PLT) white blood cell count 3.9 thous and/u L 3.8-10 .8 normal Not Available [address], [address], 09/25/2025 03:10:44 09/24/2009/25/2025 CBC (INCL UDES DIFF/ PLT) red blood cell count 4.65 maria elena on/uL 4.20-5 .80 normal Not Available [address], [address], 09/25/2025 03:10:44 09/24/2009/25/2025 CBC (INCL UDES DIFF/ PLT) hemoglobin 15.8 g/dL 13.2-1 7.1 normal Not Available [address], [address], 09/25/2025 03:10:44 09/24/2009/25/2025 CBC (INCL UDES DIFF/ PLT) hematocrit 46.9 % 38.5-5 0.0 normal Not Available [facility] [address], [address], 09/25/2025 03:10:44 09/24/2009/25/2025 CBC (INCL UDES DIFF/ PLT) MCV 100.9 fL 80.0-1 00.0 high Not Available [address], [address], 09/25/2025 03:10:44 09/24/2009/25/2025 CBC (INCL UDES DIFF/ PLT) MCH 34.0 pg 27.0-3 3.0 high Not Available [address], [address], 09/25/2025 03:10:44 09/24/2009/25/2025 CBC (INCL UDES DIFF/ PLT) MCHC 33.7 g/dL 32.0-3 6.0 normal For adult s, a sligh t decre ase in the calcu lated MCHC value (in the range of 30 to 32 g/dL) is most likel y not clini lilly ureñai mikayla t; [facility] er, it shoul d be inter prete d with cauti on in [facility] lat n with other red cell jose eters and the patie nt's clini chris condi tion. Not Available [facility] [address], [address], 09/25/2025 03:10:44 09/24/2009/25/2025 CBC (INCL UDES DIFF/ PLT) RDW 12.3 % 11.0-1 5.0 normal Not Available [address], [address], 09/25/2025 03:10:44 09/24/2009/25/2025 CBC (INCL UDES DIFF/ PLT) platelet count 264 thous and/u L 140-40 0 normal Not Available [address], [address], 09/25/2025 03:10:44 09/24/2009/25/2025 CBC (INCL UDES DIFF/ PLT) MPV 9.3 fL 7.5-12 .5 normal Not Available [address], [address], 09/25/2025 03:10:44 09/24/2009/25/2025 CBC (INCL UDES DIFF/ PLT) absolute neutrophils 2469 cells /uL 1500-7 800 normal Not Available [address], [address], 09/25/2025 03:10:44 09/24/2009/25/2025 CBC (INCL UDES DIFF/ PLT) absolute lymphocytes 901 cells /uL 850-39 00 normal Not Available [address], [address], 09/25/2025 03:10:44 09/24/2009/25/2025 CBC (INCL UDES DIFF/ PLT) absolute monocytes 390 cells /uL 200-95 0 normal Not Available [address], [address], 09/25/2025 03:10:44 09/24/2009/25/2025 CBC (INCL UDES DIFF/ PLT) absolute eosinophils 121 cells /uL 15-500 normal Not Available [address], [place], [address], 09/25/2025 03:10:44 09/24/2009/25/2025 CBC (INCL UDES DIFF/ PLT) absolute basophils 20 cells /uL 0-200 normal Not Available [facility] [address], [address], 09/25/2025 03:10:44 09/24/2009/25/2025 CBC (INCL UDES DIFF/ PLT) neutrophils 63.3 % normal Not Available [facility] [address], [address], 09/25/2025 03:10:44 09/24/2009/25/2025 CBC (INCL UDES DIFF/ PLT) lymphocytes 23.1 % normal Not Available [facility] [address], [address], 09/25/2025 03:10:44 09/24/2009/25/2025 CBC (INCL UDES DIFF/ PLT) monocytes 10.0 % normal Not Available [facility] [address], [address], 09/25/2025 03:10:44 09/24/2009/25/2025 CBC (INCL UDES DIFF/ PLT) eosinophils 3.1 % normal Not Available [facility] [address], [address], 09/25/2025 03:10:44 09/24/2009/25/2025 CBC (INCL UDES DIFF/ PLT) basophils 0.5 % normal Not Available [facility] [address], [address], 09/25/2025 03:10:44 09/24/2009/25/2025 PSA, TOTAL PSA, total 1.88 NG/mL < or = 4.00 normal The total PSA value from this assay lisa garcia is stand ardiz ed again st the [...] not be inter prete d as absol [place] evide nce of the prese nce or absen ce of disea se. Not Available [employer] [facility] [address] [place], [address], 09/25/2025 03:10:44 09/24/2009/25/2025 HEMOG LOBIN A1C hemoglobin [...] in Diabe jose enrique(A DA). Not Available [employer] [facility] [address] [place], [address], 09/25/2025 03:10:44 09/24/2009/25/2025 URINA LYSIS REFLE X color YELLOW yellow normal Not Available [address], [address], 09/25/2025 03:10:45 09/24/2009/25/2025 URINA LYSIS REFLE X appearance CLEAR clear normal Not Available [address], [address], 09/25/2025 03:10:45 09/24/2009/25/2025 URINA LYSIS REFLE X specific gravity 1.019 1.001- 1.035 normal Not Available [address], [address], 09/25/2025 03:10:45 09/24/2009/25/2025 URINA LYSIS REFLE X pH 5.5 5.0-8. 0 normal Not Available [address], [address], 09/25/2025 03:10:45 09/24/2009/25/2025 URINA LYSIS REFLE X glucose NEGATI VE negati ve normal Not Available [address], [address], 09/25/2025 03:10:45 09/24/2009/25/2025 URINA LYSIS REFLE X bilirubin NEGATI VE negati ve normal Not Available [address], [address], 09/25/2025 03:10:45 09/24/2009/25/2025 URINA LYSIS REFLE X ketones NEGATI VE negati ve normal Not Available [address], [address], 09/25/2025 03:10:45 09/24/2009/25/2025 URINA LYSIS REFLE X occult blood NEGATI VE negati ve normal Not Available [facility] [address] [address] [place], [address], 09/25/2025 03:10:45 09/24/2009/25/2025 URINA LYSIS REFLE X protein NEGATI VE negati ve normal Not Available [facility] [address] [address] [place], [address], 09/25/2025 03:10:45 09/24/2009/25/2025 URINA LYSIS REFLE X nitrite NEGATI VE negati ve normal Not Available [facility] [address] [address] [place], [address], 09/25/2025 03:10:45 09/24/2009/25/2025 URINA LYSIS REFLE X leukocyte esterase NEGATI VE negati ve normal Not Available [address] [address] [place], [address], 09/25/2025 03:10:45 Result Notes None recorded. Problems Name Problem SNOMED Code Status Onset Date Resolution Date Notes Provider Name and Address Organization Details Recorded Time Long-term drug therapy Active 2023 LUCIA Valentine Attn: Dhruv silva,[address] [place], [address], [place] [facility] 4 23:05:37 Reactive airway disease 542178249069 Active 2023 LUCIA Valentine Attn: Dhruv silav,[address] [place], [address], [place] [facility] 4 23:05:55 Seasonal allergic rhinitis 581221745 Active 2023 LUCIA Valentine Attn: Dhruv silva,[address] [place], [address], [place] [facility] 4 23:06:01 Environment al allergy 758623379 Active 2023 LUCIA Valentine Attn: Accountin g,[address] [facility], [place], [address], [place] [facility] 4 23:06:10 Gastroesoph ageal reflux disease without esophagitis 325824930 Active 2023 LUCIA Valentine Attn: Accountin g,[address] [facility], [place], [address], [place] [facility] 4 23:06:12 Subcutaneou s nodule 14384492 Active 2023 LUCIA Valentine Attn: Accountin g,[address] [facility], [place], [address], [place] [facility] 4 23:06:33 Body mass index 25-29 - overweight 838417720 Active 2023 LUCIA Valentine Attn: Accountin g,[address] [facility], [place], [address], [place] [facility] 4 23:06:37 Overweight 544896989 Active 2024 LUCIA Valentine Attn: Accountin g,[address] [place], [address], [place] [facility] 5 17:21:10 Right medial elbow tendinopath y 0958073181992 09 Active 2024 LUCIA Valentine Attn: Accountin g,[address] [place], [address], [place] [facility] 5 17:21:12 Overweight in adulthood with body mass index of 25 or more but less than 30 450102098 Active 2024 LUCIA Valentine Attn: Accountin g,[address] [place], [address], [place] [facility] 5 14:16:15 Umbilical hernia 835962381 Active 2024 LUCIA Valentine Attn: Accountin g,[address] [place], [address], [place] [facility] 15:01:02 Problem Notes None recorded. Procedures Surgical History Date Name Laterality Status Provider Name and Address Organization Details Recorded Time Knee Surgery completed Nathalie Salinas MA [facility] 06/22/2024 16:46:12 Imaging Results None recorded. [...] t Available Vitals Date Recorded Respiratory rate Systolic And Diastolic Provider Name and Address Organization Details Last Updated DateTime 09/06/2025 16 /min 140/90 mm[Hg] LUCIA Valentine Attn: Accounting,[address] [facility], [place], [address], [facility] 09/06/2025 14:34:52 Date Recorded Body height Body mass index (BMI) Body weight Oxygen saturation Heart rate Systolic And Diastolic Provider Name and Address Organization Details Last Updated DateTime 180.98 cm 26.5 kg/m2 08669.5 g 97 % 86 /min 122/80 mm[Hg] Nathalie Salinas [place] [facility] 14:15:05 Social History Question Answer Notes LastModified by Organizat ion Details LastModified Time Tobacco Smoking Status Former Smoker quit 18 years ago Nathalie Salinas MA null, [facility] 06/22/2024 16:29:54 Do You Have An Advance [...] LastModified by Organization Details LastModified Time Father Kary wong [email or web address] Not available 2023 16:29:22 Medical History Condition Response Acid Reflux (GERD) Y Cancer Y Asthma Y Allergies Y Immunizations Vaccine Type Date Status Note Provider Nam e and Address Organization Details Recorded Time Influenza, split virus, trivalent, PF 08/27/2024 completed Nathalie Salinas MA [facility], [place] - [facility] 01/11/2025 13:58:28 Past Encounters Encounter ID Performer Location Encounter Start Date Encounter Closed Date Diagnosis/Indication Diagnosis SNOMED-CT Code Diagnosis ICD10 Code Diagnosis IMO Codes Diagnosis Note [id number] Iván Hernandez MD [facility] [place] [address] [place] [address] 09/06/2025 14:05:32 09/06/2025 14:52:54 Adult health examination 029241114 Z00.01 Annual wellness exam completed Gastroesop hageal reflux disease without esophagitis 343672346 K21.9 takes prilosec 20mg OTC daily. Very stable Seasonal a llergic rhinitis 496080552 J30.2 Refill Singulair 10 mg daily for seasonal allergic rhinitis Environmental allergy 42 3642235 T78.49XS Treatment as above with Singulair Reactive a irway disease 8699532118 06 J45.909 Refill on albuterol sulfate inhaler for stable reactive airway that is related to environmen j carlos allergy triggers Cholesterol screening 27 6415563 Z13.220 Fasting lipid panel due Screening for malignant neoplasm of prostate 112396507 Z12.5 PSA annual screening due Diabetes m ellitus screening 792646023 Z13.1 A1c annual screening ordered Long-term drug therapy 788200134 Z79.899 cmp, cbc and b12, folate and urinalysis labs are due Thyroid di sorder screening 202101525 Z13.29 Routine thyroid panel ordered Mixed hyperlipidemia 267 552784 E78.2 Refill on fenofibrat e 54 mg daily. Due for fasting lipid panel. Overweight in adulthood with body mass index of 25 or more but less than 30 119400144 E66.3 Z68.26 5374115411 BMI is 26.7 Screening for malignant neoplasm of colon 970959976 Z12.11 203771 Refer for baseline colonoscop y screening to [facility] Lashay le location Umbilical hernia 2399760 07 K42.9 [id number] Refer to general surgery for newer onset of small umbilical hernia defect Health Concerns Section Related Observation LastModified by Organization Detai ls LastModified Time None Recorded Concern Status LastModified by Organization Details LastModified Time None Recorded Payers Encounter Date Sequence Insurance Name Policy Number Policy Hadley Covered Member ID Hadley Member ID Guarantor Name 09/06/2025 1 [employer] - OPEN ACCESS Storm Waterst [id number] Storm Elias Notes Date Note Type Note Provider Name and Address Organization Details Recorded Time 09/06/2025 text/html Patient is here for annual wellness exam. Patient is due for labs Patient is also on male testosterone replacement [facility]. Seasonal allergies and environmental allergies-patient continues to struggle with some symptoms. He does have Singulair 10 mg daily and albuterol sulfate inhaler that he takes for reactive airway that is from his allergies. This regimen usually keeps him pretty controlled.. GERD without esophagitis-patient is stable on Prilosec qfah-and-ieawqeo 20 mg daily Patient has a protruding area that is in the last month coming from his belly button area. No injury no straining no change in working out. No discomfort. LUCIA Valentine Attn: Accounting,[address] [place], [address], [facility] 09/06/2025 15:01:35
--- OUTSIDE RECORDS SUMMARY | 2025-11-15 00:55 | XMS_ITS | Data Portability ---
Author Organization [place] [facility], Jamarcus Malik [facility] Address [address] [place] [address] Assessment Encounter Date Assessment Date Assessment LastModified by Organization Details LastModified Time 11/20/2019 11/20/2019 Medial foot strain R TP tendonitis R [email or web address] Not available 12/01/2019 12:04:24 12/15/2019 12/15/2019 Medial foot strain R improved TP tendonitis R improved peroneal tendonitis R resolved [email or web address] Not available 12/16/2019 09:31:21 01/08/2020 01/08/2020 Medial foot strain R improved TP tendonitis R resolved peroneal tendonitis R still bothering him abalettie Not available 01/08/2020 11:43:13 01/29/2020 01/29/2020 Medial foot strain R improved TP tendonitis R resolved peroneal tendonitis R still bothering him abalettie Not available 01/29/2020 09:35:40 Plan of Treatment Reminders Order Date Submit Date Provider Last Modified By Organization Details Last Modified Time Details Appointments None recorded. Lab None recorded. Referral physical therapist referral 2019 020 [email or web address] Not available 0 10:33:07 Procedures None recorded. Surgeries None recorded. Imaging None recorded. Medication Orders meloxicam 15 mg tablet 2018 019 INTERFACE [facility] ([address]), [address], [place], [address], 9 12:52:56 Patient TargetsNo targets recorded. Patient Instructions Encounter Date Encounter Id Patient Instructions Last Modified By Organization Details Last Modified Time 11/20/2019 [id number] loves powersteps , needs more elastic arch band activity as tolerated meloxicam The etiology and treatment options for posterior tibial tendonitis and foot strain were discussed in detail with the patient. Initially I have recommended a combination of arch support of the affected foot with a powersteps and elastic arch band, rest, ice, meloxicam 15mg QD, avoiding long periods of standing or walking x 4 weeks or any high-impact activities. May need PT. If the patient's pain has not improved an MRI of the right ankle would be indicated. If a simple tenosynovitis is identified then we may consider a corticosteroid injection. If his pain has improved significantly, then we may consider custom orthoses to help prevent recurrent issues. [email or web address] Not available 12/15/2019 09:38:24 12/15/2019 [id number] peroneal tendon strain: rehab exercises abalettie Not available 12/16/2019 09:32:35 not like elastic band rx PT continue meloxicam until minimal pain rosalva for at home wears powersteps and got new work shoes; theresa, from [facility] fu 3 wk may need another shot abalettie Not available 12/16/2019 09:32:21 01/08/2020 [id number] shot to the PB tendon insertion and course continue PT no longer taking meloxicam fu 3-4 wk or cancel if he is fine abalettie Not available 01/08/2020 10:04:58 01/29/2020 [id number] pain at the PB from inferior ankle to insertion don't want to give him another shot right now continue meloxicam for the next 2 wk, then dc and see me in 3 wk may need a shot then ankle brace today finished PT fu 3 wk abalettie Not available 01/29/2020 09:47:41 Reason for Referral Physical Therapist Referral for Tibialis posterior tendinitis Referring Physician: Rupail Ambrosio, Podiatry, Encounter Date: 12/15/2019 Results Created Date Observation Date Name Description Value Unit Range Abnormal Flag Note LastModifiedBy Organization Detail LastModifiedTime 06/03/20 24 XR, foot No observ ation record ed. [email or web address] Not Available 2023 12:25:01 Result Notes None recorded. Problems Name Problem SNOMED Code Status Onset Date Resolution Date Notes Provider Name and Address Organization Details Recorded Time Contusion of foot 95624832 Active Not Available [facility] 3 03:01:47 Enthesopathy 77534410 Active Not Available [facility] 3 03:01:47 Pain in limb 82822463 Active Not Available [facility] 3 03:01:47 Problem Notes None recorded. Procedures Surgical History Date Name Laterality Status Provider Name and Address Organization Details Recorded Time 06/01/20 24 19527 X-rays 3v Feet Normal completed GWEN SEO DPM [facility] [place], [address] 06/03/2024 08:53:00 01/29/20 20 98955 Est. 20-29 min completed [facility] 01/29/2020 10:25:43 01/08/20 20 74782 Tendon Injection completed [facility] 01/08/2020 10:57:23 12/15/19 20 57259 Est. 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 H&P Exam 30-44 minutes completed [facility] 12/01/2019 12:02:33 02/08/20 12 [id number]-- INVENTORY CONTROL PLANNER H&P Exam 30-44 minutes completed [facility] 02/08/2012 17:57:35 02/08/20 12 [id number] Xray 2v Heel completed [facility] 02/08/2012 17:57:35 Arthroscopy completed JINNY STAFFORD [facility] 11/20/2019 12:18:48 procedure on stomach completed Palma Pierre [facility] 06/01/2024 14:59:29 procedure on stomach completed Palma Pierre [facility] 06/01/2024 14:59:43 Other completed Jose Wilson [facility] 02/08/2012 16:34:36 Other completed JINNYQING STAFFORD [facility] 11/20/2019 12:18:21 Imaging Results None recorded. Procedure Notes None recorded. Medical Equipment None Reported. Allergies No known drug allergies Medications Name Sig Start Date Stop Date Status Note LastModified by Organization Details LastModified Time meloxicam 15 mg tablet Take 1 tablet every day by oral route. active Not Available Not Available No t Available montelukast 10 mg tablet active Not Available Not Available Not Available albuterol active Not Available Not Barbara ilable Not Available niacin active Not Available Not Availa ble Not Available Fish Oil active Not Available Not Avai lable Not Available Prilosec active Not Available Not Avai lable Not Available Nexium active Not Available Not Availa ble Not Available ProAir HFA 90 mcg/actuation aerosol inhaler active Not Available Not Available Not Available diclofenac 1 % topical gel 11/20 completed Not Available Not Available Not Available fluticasone 0.05 % lotion-emolli ent combo no.65 cream, topical kit active Not Available Not Available Not Available Vitals Date Recorded Body height Provider Name an d Address Organization Details Last Updated DateTime 12/15/2019 182.88 cm Ana Lilia Avila [facility] 12/15/2019 09:34:05 Date Recorded Body height Provider Name an d Address Organization Details Last Updated DateTime 01/08/2020 182.88 cm Ana Lilia Avila [facility] 01/08/2020 09:49:00 Date Recorded Body height Provider Name an d Address Organization Details Last Updated DateTime 01/29/2020 182.88 cm Ana Lilia [facility] 01/29/2020 09:27:22 Date Recorded Body height Body mass index (BMI) Body weight Provider Name and Address Organization Details Last Updated DateTime 06/01/2024 182.88 cm 25.1 kg/m2 23024.59 g Yenni Raycraft [facility] 06/01/2024 15:13:01 Date Recorded Body height Body mass index (BMI) Body weight Provider Name and Address Organization Details Last Updated DateTime 11/20/2019 182.88 cm 25.1 kg/m2 67655.59 g JINNY STAFFORD [facility] 11/20/2019 12:17:32 Social History Question Answer Notes LastModified by Organizat ion Details LastModified Time Tobacco Smoking Status Former Smoker Not Available [facility] 09/27/2020 03:09:14 Quit Smoking How Many Years Ago? 12 Information not available 11/20/2019 Size Of Shoes 10 [email or web address] Informa tion not available 02/08/2012 How Much Tobacco Do You Smoke? No [id number] Information not available 09/27/2020 Sex: Unknown Functional Status Question Answer Note LastModified by Organization D etails LastModified Time What is your level of alcohol consumption? 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 Moderate [id number] Information not available 09/27/2020 Mental Status None recorded. Family History Relationship Description Onset Age of this Age Resolved Age Notes LastModified by Organization Details LastModified Time Father Arthritis [email or web address] Not barbara ilable 06/01/2024 14:58:19 Notes:none Medical History Condition Response Tuberculosis or TB N Heart Problems N Ulcers on Legs or Feet N HIV or AIDS N Coronary Artery Disease N Seizure Disorder N Gout N High Blood Pressure N Clot in Lung or Pulmonary Embolism N Menopause N Lung Condition N Phlebitis or Venous Blood Clot N Migraines N Depression N Pacemaker N Anemia N Back Pain N Neurologic Disease N Sciatica N Heart Attack (ND) N Anxiety Disorder N Urinary Tract Infections N Diabetes N Bleeding Disorder N Arthritis N Abuse of Alcohol or Drugs N Back injury N Ear Problems N Cancer Y Stroke N Eye Problems N Dementia N Stomach Problems N Peripheral Vascular Disease N Sinus Conditions N High Cholesterol N Thyroid Disorder N Broken Bone N Hepatitis N Liver Disease N Heart Disease N Rheumatoid Arthritis N Rash N Osteoporosis N Kidney Disease N Past Encounters Encounter ID Performer Location Encounter Start Date Encounter Closed Date Diagnosis/Indication Diagnosis SNOMED-CT Code Diagnosis ICD10 Code Diagnosis IMO Codes Diagnosis Note [id number] Rupali Ambrosio DPM [address] [place] [address] 02/08/2012 16:30:43 02/08/2012 17:07:36 [id number] JO[address]FIN[address] [place] [address] 11/20/2019 12:05:45 11/20/2019 12:52:02 Tibialis posterior tendinitis 489701744 M76.821 Strain of foot 632593851 0 9 S96.911A Pain in right foot 28050 52191 15915 M79.671 [id number] JO[address]FIN[address] [place] [address] 12/15/2019 09:29:50 12/15/2019 09:51:05 Tibialis posterior tendinitis 244456168 M76.821 Strain of foot 323798891 0 9 S96.911A Pain in right foot 32713 30001 08882 M79.671 Peroneal tendinitis 5320 8009 M76.71 [id number] JOSEFIN[address] [place] [address] 01/08/2020 09:46:23 01/08/2020 10:04:41 Tibialis posterior tendinitis 966019643 M76.821 Strain of foot 354284855 0 9 S96.911A Pain in right foot 31727 20008 12850 M79.671 Peroneal tendinitis 5320 8009 M76.71 [id number] JO[address]FINA [address] [place] [address] 01/29/2020 09:25:18 01/29/2020 09:49:53 Tibialis posterior tendinitis 721776251 M76.821 Strain of foot 109559563 0 9 S96.911D Pain in right foot 15720 85986 63188 M79.671 Peroneal tendinitis 5320 8009 M76.71 [id number] JOSEFINA OW[place] [address] [place] [address] 06/01/2024 14:40:20 06/01/2024 15:33:12 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 Patient agreed. Plantar fa sciitis of right foot 4002094062 7898878 M72.2 - explained to the patient the etiology of his pain and patient understood .- Offered steroids shot, but patient said the pain is not that bad at this time.- Demonstrat ed stretching exercises for plantar fasciitis. - Recommende d Voltaren Gel OTC 3x a day.- Recommende d OTC orthotics, but he said if the pain gets worse will get ones.- Offered physical therapy, but patient said he would like to wait for couple of weeks Health Concerns Section Related Observation LastModified by Organization Detai ls LastModified Time None Recorded Concern Status LastModified by Organization Details LastModified Time None Recorded Advance Directives Directive None Recorded Payers Insurance Date Sequence Insurance Name Policy Number Policy Hadley Covered Member ID Hadley Member ID Guarantor Name 06/01/2024 1 [employer] - DOS PRIOR TO 21 - [facility] [employer] [id number] 2 [employer] 11/20/2019 1 [employer] - DOS PRIOR TO 21 - [facility] [employer] [id number] Nadia Pont [id number] [employer] 06/01/2024 1 [employer] - UNICARE [employer] [id number] OI [employer] Notes Date Note Type Note Provider Name and Address Organization Details Recorded Time 9 text/html Foot Pain--Reported by PatientHPIFor location, patient reportsright midfoot at the arch (and top). For quality, patient reportsachingandnot changing. For severity, patient reportsmoderateandpain level 3-4/10. For duration, patient reports6 months. For timing, patient reportsall day long. For context, patient reportsabrupt. For alleviating factors, patient reportssitting,rest, andnot putting full weight it. For aggravating factors, patient reportsstanding,walking,angie ghtbearing, andpressure. For previous surgery, patient reportsnone. For prior imaging, patient reportsnone. For previous treatments, patient reportsnone.had a stress fx in right foot last year but does not remember any injury that caused this new pain; also mentions that he has inserts that may be getting worn down Rupali deleon [facility] [employer] [facility] 12/15/2019 09:38:29 0 text/html Foot Pain--Reported by PatientHPIFor location, patient reportsright midfoot at the arch (and lateral side). For quality, patient reportsachingandimproving. For severity, patient reportsmildandpain level 3-4/10. For duration, patient reports6 months. For timing, patient reportsall day long. For context, patient reportsabrupt. For alleviating factors, patient reportssitting,rest,not putting full weight it, andcortisone shot(new shoes and powersteps). For associated symptoms, patient reportsdenies weakness, limping, tingling, swelling, or color changes. For previous surgery, patient reportsnone. For prior imaging, patient reportsx ray. For previous injections, patient reportshelped significantly. For previous treatments, patient reportshelped a little(meloxicam and shot). For aggravating factors, (old shoes, arch band).mentions that he has new inserts now feeling much better Rupali deleon [facility] [employer] [facility] 12/16/2019 09:32:38 0 text/html Foot Pain--Reported by PatientHPIFor location, patient reportsright midfoot at the arch (and lateral side (hurts most at the lateral side, medial arch is better)). For quality, patient reportsachingandimproving. For severity, patient reportsmildandpain level 3-4/10. For duration, patient reports7 months. For timing, patient reportsall day long. For context, patient reportsabrupt. For alleviating factors, patient reportsrest(new shoes and powersteps. started pt 2 x a week at [employer] feeling better, can be tender at time during activities, new inserts still working.). For associated symptoms, patient reportsdenies weakness, limping, tingling, swelling, or color changes. For prior imaging, patient reportsx ray. For previous treatments, patient reportshelped a little. For aggravating factors, (old shoes, arch band). Rupali deleon [facility] [employer] [facility] 01/08/2020 11:44:17 0 text/html Foot Pain--Reported by PatientHPIFor location, patient reportsright midfoot at the arch (and lateral side (hurts most at the lateral side, medial arch is better)). For quality, patient reportsaching,throbbing (up tendon on right foot to the lateral leg),occurs: daily, andworsening (again after doing a long hike, then standing a lot at [employer] and the pet parade.). For severity, patient reportsmildandpain level 3-4/10. For duration, patient reports7.5 months. For timing, patient reportsall day long. For context, patient reportsabrupt. For alleviating factors, patient reportsrest(pt ended 2 x a week at [employer] ,new shoes and powersteps feeling better, can be tender at time during activities). For associated symptoms, patient reportsdenies weakness, limping, tingling, swelling, or color changes. For prior imaging, patient reportsx ray. For previous treatments, patient reportshelped temporarilyandhelped significantly. For aggravating factors, (old shoes, arch band).I thought it was going well and I was going to be done with this, but then it flared up again Present today f/u foot pain c/o been on feet x 2 weeks a lot caused a flare discomfort,he started back with meloxicam once daily about 1 week ago NEVAEH [place] [facility] 01/29/2020 10:26:53 4 text/html Foot Pain--Reported by PatientCeleste is a 43-year-old male patient who presents to the clinic complaining of right foot pain that gradually started 2 months ago. He rates the pain at 3/10 in severity and describes it as discomfort. He denies any trauma or injury. He points to the second toe area and states that sometimes if feels there is a knot or walking on something. He also adds that he experiences intermittent plantar foot foot and points to the plantar heel area, which he describes as non-radiating sharp pain worse in the morning. Resting makes the pain better and walking aggravates it. Patient has no other pedal complaints at this time. GWEN SEO, [address] [place], [address], [place] [facility] 2024 21:54:35
--- OUTSIDE RECORDS SUMMARY | 2025-11-15 00:55 | XMS_ITS | Data Portability ---
Author Organization ID - [facility], Main Office Address [address] [place] [address] Assessment No assessment recorded. Plan of Treatment Reminders Order Date Submit Date Provider Last Modified By Organization Details Last Modified Time Details Appointments None recorded . Lab PSA, serum or plasma 023 07/19/20 [facility], [address], [place], [address], 3 04:41:05 CMP, serum or plasma 023 07/19/20 [facility], [address], [place], [address], 3 04:41:02 CBC w/ auto diff 023 07/19/20 [facility], [address], [place], [address], 3 04:41:04 TSH + free T4, serum 023 07/19/20 [facility], [address], [place], [address], 3 04:41:00 HbA1c (hemoglo bin A1c), blood 023 07/19/20 [facility], [address], [place], [address], 3 04:41:03 lipid panel, serum 023 07/19/20 [facility], [address], [place], [address], 04:41:01 Referral None recorded . Procedures None recorded . Surgeries None recorded . Imaging None recorded . Medication Orders None recorded . Patient TargetsNo targets recorded. Patient InstructionsNo instructions recorded. Reason for Referral None Reported. Results Created Date Observation Date Name Description Value Unit Range Abnormal Flag Note LastModifiedBy Organization Detail LastModifiedTime 07/30/2007/31/2023 TSH+F REE T4 TSH 1.64 mIU/L 0.40-4 .50 normal Not Available [facility] [address], [address], 07/31/2023 04:41:00 07/30/20 23 07/31/2023 TSH+F REE T4 T4, free 1.2 NG/dL 0.8-1. 8 normal Not Available [facility] [address], [address], 07/31/2023 04:41:00 07/30/20 23 07/31/2023 LIPID PANEL WITH RATIO S cholesterol, total 215 mg/dL <200 high Not Available [facility] [address], [address], 07/31/2023 04:41:01 07/30/20 23 07/31/2023 LIPID PANEL WITH RATIO S HDL cholesterol 50 mg/dL > or = 40 normal Not Available [facility] [address], [address], 07/31/2023 04:41:01 07/30/20 23 07/31/2023 LIPID PANEL WITH RATIO S triglyceride s 177 mg/dL <150 high Not Available [facility] [address], [address], 07/31/2023 04:41:01 07/30/20 23 07/31/2023 LIPID PANEL WITH RATIO S LDL-choleste rol 134 mg/dL _(chris c) high Refer ence range : <100 Kirit able range <100 mg/dL for prima ry preve ntion ; <70 mg/dL for patie nts with CHD or diabe tic patie nts with > or = 2 CHD risk facto rs. LDL-C is now calcu lated using the Mita n-Hop kins calcu sunshine n, which is a valid ated novel bevo d provi rachel riggste r accur acy than the Fried grover equat ion in the estim ation of LDL-C . Mita thurston SS et al. DAYLIN. 2013; 310(1 9): 2061- 2068 (http ://ed ucati on.Qu [employer]. com/f aq/FA Q164) Not Available [facility] [address] [address] [place], [address], 07/31/2023 04:41:01 07/30/2007/31/2023 LIPID PANEL WITH RATIO S chol/HDLC ratio 4.3 (calc ) <5.0 normal Not Available [facility] [address] [address] [place], [address], 07/31/2023 04:41:01 07/30/2007/31/2023 LIPID PANEL WITH RATIO S LDL/HDL ratio 2.7 (calc ) Below Zillah ge Risk: <2.28 Zillah ge Risk: 2.29- 4.90 Moder ate Risk: 4.91- 7.12 High Risk: >7.13 Not Available [facility] [address] [place], [address], 07/31/2023 04:41:01 07/30/2007/31/2023 LIPID PANEL WITH RATIO S non HDL cholesterol 165 mg/dL _(chris c) <130 high For patie nts with diabe jose enrique plus 1 major ASCVD risk facto r, treat ing to a non-H DL-C goal of <100 mg/dL (LDL- C of <70 mg/dL ) is manii gorge a nav pelita c optio n. Not Available [facility] [address] [place], [address], 07/31/2023 04:41:01 07/30/2007/31/2023 COMPR EHENS MARYSOL METAB OLIC PANEL glucose 103 mg/dL 65-99 high Fasti ng refer ence inter yarelis For someo ne witho ut known diabe jose enrique, a gluco se value betwe en 100 and 125 mg/dL is consi stent with predi abete s and shoul d be confi rmed with a follo w-up test. Not Available [address], [address], 07/31/2023 04:41:02 07/30/2007/31/2023 COMPR EHENS MARYSOL METAB OLIC PANEL urea nitrogen (BUN) 14 mg/dL 7-25 normal Not Available [address], [address], 07/31/2023 04:41:02 07/30/20 23 07/31/2023 COMPR EHENS MARYSOL METAB OLIC PANEL creatinine 0.82 mg/dL 0.60-1 .29 normal Not Available [address], [address], 07/31/2023 04:41:02 07/30/20 23 07/31/2023 COMPR EHENS MARYSOL METAB OLIC PANEL eGFR 111 mL/mi n/1.7 3m2 > or = 60 normal Not Available [address], [address], 07/31/2023 04:41:02 07/30/20 23 07/31/2023 COMPR EHENS MARYSOL METAB OLIC PANEL BUN/creatini ne ratio SEE NOTE: (calc ) 6-22 Not Repor valente: BUN and Creat inine are withi n refer ence range . Not Available [facility] [address], [address], 07/31/2023 04:41:02 07/30/20 23 07/31/2023 COMPR EHENS MARYSOL METAB OLIC PANEL sodium 138 mmol/ L 135-14 6 normal Not Available [address], [address], 07/31/2023 04:41:02 07/30/20 23 07/31/2023 COMPR EHENS MARYSOL METAB OLIC PANEL potassium 3.9 mmol/ L 3.5-5. 3 normal Not Available [address], [address], 07/31/2023 04:41:02 07/30/20 23 07/31/2023 COMPR EHENS MARYSOL METAB OLIC PANEL chloride 104 mmol/ L 98-110 normal Not Available [address], [address], 07/31/2023 04:41:02 07/30/20 23 07/31/2023 COMPR EHENS MARYSOL METAB OLIC PANEL carbon dioxide 28 mmol/ L 20-32 normal Not Available [address], [address], 07/31/2023 04:41:02 07/30/20 23 07/31/2023 COMPR EHENS MARYSOL METAB OLIC PANEL calcium 9.2 mg/dL 8.6-10 .3 normal Not Available [address], [address], 07/31/2023 04:41:02 07/30/20 23 07/31/2023 COMPR EHENS MARYSOL METAB OLIC PANEL protein, total 6.6 g/dL 6.1-8. 1 normal Not Available [address], [address], 07/31/2023 04:41:02 07/30/20 23 07/31/2023 COMPR EHENS MARYSOL METAB OLIC PANEL albumin 4.4 g/dL 3.6-5. 1 normal Not Available [address], [place], [address], 07/31/2023 04:41:02 07/30/20 23 07/31/2023 COMPR EHENS MARYSOL METAB OLIC PANEL globulin 2.2 g/dL_ (calc ) 1.9-3. 7 normal Not Available [address], [address], 07/31/2023 04:41:02 07/30/20 23 07/31/2023 COMPR EHENS MARYSOL METAB OLIC PANEL albumin/glob ulin ratio 2.0 (calc ) 1.0-2. 5 normal Not Available [address], [address], 07/31/2023 04:41:02 07/30/20 23 07/31/2023 COMPR EHENS MARYSOL METAB OLIC PANEL bilirubin, total 0.6 mg/dL 0.2-1. 2 normal Not Available [address], [address], 07/31/2023 04:41:02 07/30/20 23 07/31/2023 COMPR EHENS MARYSOL METAB OLIC PANEL alkaline phosphatase 51 U/L 36-130 normal Not Available [address], [address], 07/31/2023 04:41:02 07/30/20 23 07/31/2023 COMPR EHENS MARYSOL METAB OLIC PANEL AST 58 U/L 10-40 high Not Available [address], [address], 07/31/2023 04:41:02 07/30/2007/31/2023 COMPR EHENS MARYSOL METAB OLIC PANEL ALT 36 U/L 9-46 normal Not Available [address], [address], 07/31/2023 04:41:02 07/30/20 23 07/31/2023 HEMOG LOBIN A1C hemoglobin A1C 5.1 %_of_ total _HGB <5.7 normal For the purpo se of daniel saini for the prese nce of diabe jose enrique: <5.7% Consi stent with the absen ce of diabe jose ernique 5.7-6 .4% Consi stent with incre ased [...] in Diabe jose enrique(A DA). Not Available [address] [address] [place], [address], 07/31/2023 04:41:03 07/30/20 23 07/31/2023 CBC (INCL UDES DIFF/ PLT) white blood cell count 3.8 thous and/u L 3.8-10 .8 normal Not Available [address] [address] [place], [address], 07/31/2023 04:41:04 07/30/20 23 07/31/2023 CBC (INCL UDES DIFF/ PLT) red blood cell count 4.64 maria elena on/uL 4.20-5 .80 normal Not Available [facility] [address] [address] [place], [address], 07/31/2023 04:41:04 07/30/20 23 07/31/2023 CBC (INCL UDES DIFF/ PLT) hemoglobin 15.5 g/dL 13.2-1 7.1 normal Not Available [facility] [address] [address], [place], [address], 07/31/2023 04:41:04 07/30/2007/31/2023 CBC (INCL UDES DIFF/ PLT) hematocrit 44.4 % 38.5-5 0.0 normal Not Available [address], [address], 07/31/2023 04:41:04 07/30/2007/31/2023 CBC (INCL UDES DIFF/ PLT) MCV 95.7 fL 80.0-1 00.0 normal Not Available [facility] [address], [address], 07/31/2023 04:41:04 07/30/2007/31/2023 CBC (INCL UDES DIFF/ PLT) MCH 33.4 pg 27.0-3 3.0 high Not Available [address], [address], 07/31/2023 04:41:04 07/30/2007/31/2023 CBC (INCL UDES DIFF/ PLT) MCHC 34.9 g/dL 32.0-3 6.0 normal Not Available [address], [address], 07/31/2023 04:41:04 07/30/2007/31/2023 CBC (INCL UDES DIFF/ PLT) RDW 12.1 % 11.0-1 5.0 normal Not Available [address], [address], 07/31/2023 04:41:04 07/30/2007/31/2023 CBC (INCL UDES DIFF/ PLT) platelet count 237 thous and/u L 140-40 0 normal Not Available [address], [address], 07/31/2023 04:41:04 07/30/2007/31/2023 CBC (INCL UDES DIFF/ PLT) MPV 9.5 fL 7.5-12 .5 normal Not Available [address], [address], 07/31/2023 04:41:04 07/30/20 23 07/31/2023 CBC (INCL UDES DIFF/ PLT) absolute neutrophils 2246 cells /uL 1500-7 800 normal Not Available [address], [address], 07/31/2023 04:41:04 07/30/2007/31/2023 CBC (INCL UDES DIFF/ PLT) absolute lymphocytes 1011 cells /uL 850-39 00 normal Not Available [address], [address], 07/31/2023 04:41:04 07/30/20 23 07/31/2023 CBC (INCL UDES DIFF/ PLT) absolute monocytes 372 cells /uL 200-95 0 normal Not Available [address], [address], 07/31/2023 04:41:04 07/30/20 23 07/31/2023 CBC (INCL UDES DIFF/ PLT) absolute eosinophils 152 cells /uL 15-500 normal Not Available [address], [address], 07/31/2023 04:41:04 07/30/20 23 07/31/2023 CBC (INCL UDES DIFF/ PLT) absolute basophils 19 cells /uL 0-200 normal Not Available [address], [address], 07/31/2023 04:41:04 07/30/20 23 07/31/2023 CBC (INCL UDES DIFF/ PLT) neutrophils 59.1 % normal Not Available [address], [address], 07/31/2023 04:41:04 07/30/20 23 07/31/2023 CBC (INCL UDES DIFF/ PLT) lymphocytes 26.6 % normal Not Available [address], [address], 07/31/2023 04:41:04 07/30/20 23 07/31/2023 CBC (INCL UDES DIFF/ PLT) monocytes 9.8 % normal Not Available [facility] [address], [address], 07/31/2023 04:41:04 07/30/20 23 07/31/2023 CBC (INCL UDES DIFF/ PLT) eosinophils 4.0 % normal Not Available [facility] [address], [address], 07/31/2023 04:41:04 07/30/20 23 07/31/2023 CBC (INCL UDES DIFF/ PLT) basophils 0.5 % normal Not Available [facility] [address], [address], 07/31/2023 04:41:04 07/30/2007/31/2023 PSA, TOTAL PSA, total 1.10 NG/mL < or = 4.00 normal The [...] This test was perfo rmed using the [employer] chemi lumin escen t metho d. Value s obtai brooke from diffe rent assay metho ds canno t be used inter archuleta eably . PSA level s, regar dless of value , shoul d not be inter prete d as absol will evide nce of the prese nce or absen ce of domitila chang. Not Available [facility] [address] [address] [place], [address], 07/31/2023 04:41:05 09/18/2009/19/2023 COMPR EHENS MARYSOL METAB OLIC PANEL glucose 87 mg/dL 65-99 normal Fasti ng refer ence inter yarelis Not Available [facility] [address] [address] [place], [address], 09/19/2023 07:26:59 09/18/2009/19/2023 COMPR EHENS MARYSOL METAB OLIC PANEL urea nitrogen (BUN) 15 mg/dL 7-25 normal Not Available [facility] [address] [address] [place], [address], 09/19/2023 07:26:59 09/18/2009/19/2023 COMPR EHENS MARYSOL METAB OLIC PANEL creatinine 0.82 mg/dL 0.60-1 .29 normal Not Available [address] [address] [place], [address], 09/19/2023 07:26:59 09/18/2009/19/2023 COMPR EHENS MARYSOL METAB OLIC PANEL eGFR 111 mL/mi n/1.7 3m2 > or = 60 normal Not Available [address] [address] [place], [address], 09/19/2023 07:26:59 09/18/2009/19/2023 COMPR EHENS MARYSOL METAB OLIC PANEL BUN/creatini ne ratio SEE NOTE: (calc ) 6-22 Not Repor valente: BUN and Creat inine are withi n refer ence range . Not Available [facility] [address] [address] [place], [address], 09/19/2023 07:26:59 09/18/20 23 09/19/2023 COMPR EHENS MARYSOL METAB OLIC PANEL sodium 141 mmol/ L 135-14 6 normal Not Available [facility] [address], [place], [address], 09/19/2023 07:26:59 09/18/2009/19/2023 COMPR EHENS MARYSOL METAB OLIC PANEL potassium 3.8 mmol/ L 3.5-5. 3 normal Not Available [address], [address], 09/19/2023 07:26:59 09/18/2009/19/2023 COMPR EHENS MARYSOL METAB OLIC PANEL chloride 106 mmol/ L 98-110 normal Not Available [address], [address], 09/19/2023 07:26:59 09/18/2009/19/2023 COMPR EHENS MARYSOL METAB OLIC PANEL carbon dioxide 28 mmol/ L 20-32 normal Not Available [address], [address], 09/19/2023 07:26:59 09/18/2009/19/2023 COMPR EHENS MARYSOL METAB OLIC PANEL calcium 9.3 mg/dL 8.6-10 .3 normal Not Available [address], [address], 09/19/2023 07:26:59 09/18/2009/19/2023 COMPR EHENS MARYSOL METAB OLIC PANEL protein, total 6.5 g/dL 6.1-8. 1 normal Not Available [address], [address], 09/19/2023 07:26:59 09/18/2009/19/2023 COMPR EHENS MARYSOL METAB OLIC PANEL albumin 4.4 g/dL 3.6-5. 1 normal Not Available [address], [address], 09/19/2023 07:26:59 09/18/2009/19/2023 COMPR EHENS MARYSOL METAB OLIC PANEL globulin 2.1 g/dL_ (calc ) 1.9-3. 7 normal Not Available [address], [address], 09/19/2023 07:26:59 09/18/2009/19/2023 COMPR EHENS MARYSOL METAB OLIC PANEL albumin/glob ulin ratio 2.1 (calc ) 1.0-2. 5 normal Not Available [address], [address], 09/19/2023 07:26:59 09/18/2009/19/2023 COMPR EHENS MARYSOL METAB OLIC PANEL bilirubin, total 0.8 mg/dL 0.2-1. 2 normal Not Available [address], [address], 09/19/2023 07:26:59 09/18/2009/19/2023 COMPR EHENS MARYSOL METAB OLIC PANEL alkaline phosphatase 44 U/L 36-130 normal Not Available [address], [address], 09/19/2023 07:26:59 09/18/20 23 09/19/2023 COMPR EHENS MARYSOL METAB OLIC PANEL AST 18 U/L 10-40 normal Not Available [address], [address], 09/19/2023 07:26:59 09/18/2009/19/2023 COMPR EHENS MARYSOL METAB OLIC PANEL ALT 19 U/L 9-46 normal Not Available [address], [address], 09/19/2023 07:26:59 09/18/20 23 09/19/2023 GGT GGT 19 U/L 3-95 normal Not Available [address], [address], 09/19/2023 07:27:01 Result Notes None recorded. 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 Not Available [facility] 3 17:30:09 Gastroesophag eal reflux disease 149604206 Active Not Available [facility] 3 17:30:09 Vitamin D deficiency 78681050 Active Not Available [facility] 3 17:30:09 Environmental allergy 631244638 Active Not Available [facility] 3 17:30:09 Strain of calf muscle 269525540 Active 2021 Not Available [facility] 3 17:30:09 Hyperlipidemi a 93273051 Active 2021 DANNY Davis, [employer] 3 12:17:33 Acute sinusitis 70339121 Active 2021 Not Available [facility] 3 17:30:09 Exacerbation of intermittent asthma 337124212 Active 2021 Not Available [facility] 3 17:30:09 Cough 40389999 Active 2021 Not Available [facility] 3 17:30:09 Gastroesophag eal reflux disease without esophagitis 159795028 Active 2022 LUCIA Valentine [address], [place], [address] , [employer] 3 09:05:51 Seasonal allergic rhinitis 539841815 Active 2022 LUCIA Valentine [address], [address], [place], [address] , [employer] 3 09:03:33 Liver enzymes level above reference range 394154670 Active 2022 LUCIA Valentine [address], [address], [place], [address] , [employer] 3 12:21:28 Upper respiratory infection 71415272 Active 2022 LUCIA Valentine [address] [facility], [facility] [address], [place], [address] , [facility] [employer] 14:04:12 Problem Notes None recorded. Procedures Surgical History Date Name Laterality Status Provider Name and Address Organization Details Recorded Time other completed Not Available [facility] 12/2022 17:29:05 procedure on knee completed Not Available [facility] 01/30/2023 17:29:05 Imaging Results None recorded. Procedure Notes None recorded. Medical Equipment None Reported. Allergies No known drug allergies Medications Name Sig Start Date Stop Date Status Note LastModified by Organization Details LastModified Time doxycycline hyclate 100 mg capsule Take 1 capsule twice a day by oral route with meals. active Not Available Not Available No t Available azithromyci n 250 mg tablet TAKE 2 TABLETS (500 MG) BY ORAL ROUTE ONCE DAILY FOR 1 DAY THEN 1 TABLET (250 MG) BY ORAL ROUTE ONCE DAILY FOR 4 DAYS 07/11 completed Not Available Not Available Not Available benzonatate 200 mg capsule Take 1 capsule 3 times a day by oral route. 07/18 completed Not Available Not Available Not Available hydrocodone 5 mg-acetamin ophen 325 mg tablet 03/13 completed Not Available Not Available Not Available meloxicam 15 mg tablet 06/08 completed Not Available Not Available Not Available sucralfate 1 gram tablet active Not Available Not Available Not Available Nexium 40 mg capsule,del ayed release Take 1 capsule twice a day by oral route before meals. 06/08 completed Not Available Not Available Not Available Nexium 20 mg capsule,del ayed release Take 2 capsules every day by oral route. 2019 active Not Available Not Available Not Avai lable meloxicam 7.5 mg tablet 04/06 completed Not Available Not Available Not Available cephalexin 500 mg capsule 03/13 completed Not Available Not Available Not Available diclofenac sodium 75 mg tablet,josette yed release Take 1 tablet every day by oral route. active Not Available Not Available No t Available montelukast 10 mg tablet TAKE 1 TABLET BY MOUTH DAILY active Not Available Not Available No t Available codeine 10 mg-guaifene sin 100 mg/5 mL oral liquid TAKE 10 ML BY MOUTH EVERY 4 TO 6 HOURS NEEDED 07/18 completed Not Available Not Available Not Available levofloxaci n 500 mg tablet Take 1 tablet every 24 hours by oral route for 7 days. active Not Available Not Available No t Available methylpredn isolone 4 mg tablets in a dose pack Take by oral route as directed active Not Available Not Available No t Available albuterol sulfate HFA 90 mcg/actuati on aerosol inhaler INHALE 2 PUFFS BY MOUTH EVERY 4 TO 6 HOURS NEEDED active Not Available Not Available No t Available Vitamin D2 1,250 mcg (50,000 unit) capsule Take 1 capsule every week by oral route as directed. 03/13 completed Not Available Not Available Not Available fluticasone propionate 50 mcg/actuati on nasal spray,suspe nsion SHAKE LIQUID AND USE 2 SPRAYS IN EACH NOSTRIL DAILY active Not Available Not Available No t Available naproxen 500 mg tablet 03/13 completed Not Available Not Available Not Available amoxicillin 875 mg-potassiu m clavulanate 125 mg tablet Take 1 tablet every 12 hours by oral route. 07/18 completed Not Available Not Available Not Available Fish Oil daily 03/13 completed Not Available Not Available Not Available Glucosamine daily 03/13 completed Not Available Not Available Not Available Nexium takes daily 2014 active Not Available Not Available Not Avai lable Flector 1.3 % transdermal 12 hour patch Apply 1 patch every 12 hours by transderm al route as needed. 04/06 completed Not Available Not Available Not Available diclofenac 1 % topical gel APPLY 2 GRAM TO THE right medial knee BY TOPICAL ROUTE 3 TIMES PER DAY 06/08 completed Not Available Not Available Not Available niacin (inositol niacinate) 500 mg capsule Take 1 capsule twice a day by oral route. 2018 active Not Available Not Available Not Avai lable Fish Oil 1,000 mg (120 mg-180 mg) capsule Take 1 capsule twice a day by oral route. 2018 active Not Available Not Available Not Avai lable Vitals Date Recorded Body mass index (BMI) Body height Oxygen saturation Heart rate Respiratory rate Body temperature Body weight Systolic And Diastolic Provider Name and Address Organization Details Last Updated DateTime 2 26 kg/m2 182.88 cm 98 % 74 /min 16 /min 97.8 [degF] 70612.3 g 122/72 mm[Hg] Not Available [facility] 3 17:29:54 Date Recorded Body mass index (BMI) Body height Oxygen saturation Heart rate Body temperature Body weight Systolic And Diastolic Provider Name and Address Organization Details Last Updated DateTime 1 25.1 kg/m2 182.88 cm 98 % 72 /min 96.1 [degF] 02807.5 9 g 120/80 mm[Hg] Not Available [facility] 3 17:29:54 Date Recorded Body mass index (BMI) Body height Oxygen saturation Heart rate Respiratory rate Body temperature Body weight Systolic And Diastolic Provider Name and Address Organization Details Last Updated DateTime 2 26.4 kg/m2 182.88 cm 98 % 79 /min 16 /min 96.9 [degF] 27798.5 1 g 120/80 mm[Hg] Not Available [facility] 3 17:29:54 Date Recorded Body height Body temperature Body mass index (BMI) Body weight Respiratory rate Oxygen saturation Heart rate Systolic And Diastolic Provider Name and Address Organization Details Last Updated DateTime 3 182.88 cm 97.2 [degF] 26.4 kg/m2 09158.5 1 g 16 /min 98 % 74 /min 122/80 mm[Hg] DANNY [place] [facility] [place] [employer] [facility] 3 08:49:21 Date Recorded Body height Oxygen saturation Heart rate Body temperature Systolic And Diastolic Provider Name and Address Organization Details Last Updated DateTime 2 182.88 cm 97 % 79 /min 98.2 [degF] 118/80 mm[Hg] Not Available [facility] 3 17:29:54 Social History Question Answer Notes LastModified by Organizat ion Details LastModified Time Tobacco Smoking Status Former Smoker Not Available [facility] 01/30/2023 17:29:01 What Is Your Level Of Caffeine Consumption? Heavy [id number] Information not available 01/30/2023 In The 14 Days Before Symptom Onset, Have You Had Close Contact With A Laboratory-confirm ed COVID-19 While That Case Was Ill? No [id number] Information not available 01/30/2023 In The 14 Days Before Symptom Onset, Have You Had Close Contact With A Person Who Is Under Investigation For COVID-19 While That Person Was Ill? No [id number] Information not available 01/30/2023 What Type Of Diet Are You Following? REGULAR [id number] Information not available 01/30/2023 What Is The Highest Grade Or Level Of School You Have Completed Or The Highest Degree You Have Received? [id number] [id number] Information not available 01/30/2023 Have There Been Any Changes To Your Family Or Social Situation? No [id number] Information not available 01/30/2023 When Did You Quit Smoking? 6-10yearssin celastcigare tte [id number] Information not available 01/30/2023 Do You Use Insect Repellent Routinely? No [id number] Information not available 01/30/2023 Have You Ever Been Counseled For Unhealthy Alcohol Use? No [id number] Information not available 01/30/2023 What Is Your Relationship Status? [id number] Information not available 01/30/2023 Do You Use Your Seat Belt Or Car Seat Routinely? Yes [id number] Information not available 01/30/2023 Do You Have Smoke And Carbon Monoxide Detectors In Your Home? Yes [id number] Information not available 01/30/2023 At What Age Did You Start Smoking Tobacco? 15 [id number] Information not available 01/30/2023 Do You Use Sunscreen Routinely? Yes [id number] Information not available 01/30/2023 Has Tobacco Cessation Counseling Been Provided? No [id number] Information not available 01/30/2023 How Many Years Have You Smoked Tobacco? 12 [id number] Information not available 01/30/2023 Have You Recently Traveled Abroad? No [id number] Information not available 01/30/2023 Do You Have Any Dietary Restrictions? No [id number] Information not available 01/30/2023 Sex: Unknown Functional Status Question Answer Note LastModified by Organizat ion Details LastModified Time Do you use any illicit or recreational drugs? No [id number] Information not available 01/30/2023 Do you or have you ever used any other forms of tobacco or nicotine? No [id number] Information not available 01/30/2023 What is your level of alcohol consumption? Moderate [id number] 26 Information not available 01/30/2023 Are you currently employed? 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 Moderate [id number] 26 Information not available 01/30/2023 Mental Status None recorded. Family History Relationship Description Onset Age of this Age Resolved Age Notes LastModified by Organization Details LastModified Time Father Hyperlipidem ia [id number] Not available 01/30/2023 17:29:06 Mother Hyperlipidem ia [id number] Not available 01/30/2023 17:29:06 Unspecified Relation Diabetes mellitus [id number] Not available 01/30/2023 17:29:07 Medical History Condition Response CANCER: SPECIFY Y HEARTBURN / REFLUX Y RADIATION / CHEMOTHERAPY Y HIGH CHOLESTEROL / HYPERLIPIDEMIA Y ASTHMA Y Past Encounters Encounter ID Performer Location Encounter Start Date Encounter Closed Date Diagnosis/Indication Diagnosis SNOMED-CT Code Diagnosis ICD10 Code Diagnosis IMO Codes Diagnosis Note [id number] LUCIA Valentine [facility] [place] [address] [place] [address] 07/11/2021 00:00:00 08/01/2021 13:43:39 [id number] Iván Hernandez MD [facility] [place] [address] [place] [address] 05/25/2022 00:00:00 05/27/2022 18:36:08 [id number] Iván Hernandez MD [facility] [place] [address] [place] [address] 07/17/2022 00:00:00 08/01/2022 20:41:38 [id number] LUCIA Valentine [facility] [place] [address] [place] [address] 10/23/2022 00:00:00 10/30/2022 21:26:34 [id number] LUCIA Valentine [facility] [place] [address] [place] [address] 07/19/2023 08:43:06 07/19/2023 09:19:48 Adult health examination 478023111 Z00.01 well exam completed Gastroesop hageal reflux disease without esophagitis 345151809 K21.9 stable on PPI therapy Hyperlipidemia 67472169 E78.5 due for fasting lipids on fish oil Environmental allergy 42 8282159 T78.49XD stable Long-term drug therapy 344328993 Z79.899 routine labs due Diabetes m ellitus screening 930652126 Z13.1 screening a1c due Screening for malignant neoplasm of prostate 770558375 Z12.5 annual psa due Health Concerns Section Related Observation LastModified by Organization Detai ls LastModified Time None Recorded Concern Status LastModified by Organization Details LastModified Time None Recorded Advance Directives Directive None Recorded Payers Insurance Date Sequence Insurance Name Policy Number Policy Hadley Covered Member ID Hadley Member ID Guarantor Name 07/30/2023 1 [employer] - OPEN ACCESS [id number] Nadia Elias [id number] GITA Elias Notes Date Note Type Note Provider Name and Address Organization Details Recorded Time 07/19/20 23 text/htm l HyperlipidemiaReported by PatientHPIFor compliance, patient reportsdoes not exercisebut reportscompliantandcompliant with diet. For control, patient reportsusually well controlled,improving, andat goal. For complications, patient reportsno coronary artery disease,no peripheral artery disease, andno cardiovascular disease. Reflux/GERDReported by PatientHPIFor severity, patient reportssame. For duration, patient reportspresent 5 or more years. For onset/timing, patient reportsgone now. For context, patient reportsnon-smoker,no drug/alcohol abuse,no drug alcohol withdrawal, andnot related to food/drink. For alleviating factors, patient reportsmedication. For associated symptoms, patient reportsno frequent coughing,no feeling of fullness/mass in throat,no hoarseness,no food getting stuck,no belching/burping,no vomiting,not vomiting blood,no regurgitation,no shortness of breath,no chest pain,no heartburn,no difficulty swallowing,no pain when swallowing,no bad taste,no decreased appetite,no weight loss,no black/tarry stools,no fatigue, andno throat pain. LUCIA Valentine [address] [facility] [address], [place], [address], [place] [facility] 07/30/2023 08:57:53
--- NOTE | 2025-11-15 11:57 | ECG_ITS ---
Test Date: 2025-11-15 12:07:17 Measurements Intervals [place] Rate: 80 P: 59 HI: 164 QRS: -15 QRSD: 98 T: 51 QT: 330 QTc: 382 Interpretive Statements SINUS RHYTHM POSSIBLE LEFT ATRIAL ENLARGEMENT CONSIDER INFERIOR INFARCT, AGE INDETERMINATE ABNORMAL ECG No previous ECG available for comparison Electronically Signed On 11-15-2025 13:00:07 AIRPORT OPERATIONS COORDINATOR by Adalid Winters D.O.
[2025-11-15] MEDS: LACTATED RINGERS 1,000 ML 30 ML IV CONT ×2 (12:20→14:04)
[2025-11-15] MEDS: ACETAMINOPHEN 500 MG TABLET 1000 MG PO (12:35)
[2025-11-15] MEDS: KETOROLAC 15 MG/ML VIAL (*BKC) IV PUSH ×2 (12:35→13:46)
--- NOTE | 2025-11-15 12:47 | WPDHPUPDATE1 ---
History and Physical Update Update Date/Time: 11/15/25 12:47 History and Physical has been reviewed, including an updated exam of the patient. There are NO changes in the patient's condition. Risks, benefits, and alternatives have been discussed and questions answered. Patient agrees to proceed with procedure.
--- NOTE | 2025-11-15 12:47 | PM.IMHP2 ---
H&P: HPI History of Present Illness Date/Time: 11/15/25 12:47 Chief Complaint: Umbilical hernia Narrative: This is a 45-year-old man who presents for umbilical hernia repair. He reports no changes since last seen in the office. Review of Systems Review of Systems: All systems reviewed & are unremarkable except as noted in HPI and below Constitutional: Constitutional: Denies chills, Denies fever(s), Denies headache(s) and Denies weight loss Eyes: Eyes: Denies change in vision ENT: Denies dizziness, Denies headache(s), Denies neck mass and Denies throat swelling Cardiovascular: Cardiovascular: Denies chest pain, Denies lightheadedness and Denies dyspnea Respiratory: Respiratory: Denies cough, Denies dyspnea and Denies wheezing Gastrointestinal: Gastrointestinal: Denies abdominal pain, Denies change in bowel habits, Denies nausea and Denies vomiting Genitourinary: Genitourinary: Denies hematuria and Denies dysuria Musculoskeletal: Musculoskeletal: Reports as per HPI Integumentary/Breasts: Skin/Breast: Reports as per HPI Neurologic: Denies dizziness and Denies headache(s) Allergic/Immunologic: Allergic/Immunologic: Denies throat swelling and Denies wheezing [facility] Past Medical History Medical History (Updated 09/17/25 @ 09:38 by Vandana Vargas CMA) Cancer Surgical History Surgical History (Updated 09/17/25 @ 09:03 by Namita Mayfield MA) Knee abrasion Stomach tumor (benign) Family History Family History (Updated 09/17/25 @ 09:04 by Namita Mayfield MA) Grandparent Diabetes mellitus Social History Social History (Updated 09/17/25 @ 09:04 by Namita Mayfield MA) Smoking status: Never smoker Drinks per week: 10 Alcohol use details: social drinker weekly Substance use type: does not use Living arrangements: with family Spiritual care concerns: No Meds Home Medications and Allergies Home Medications ?Medication ?Instructions ?Recorded ?Confirmed ?Type albuterol sulfate 2 mg tablet 2 mg PO Q8H 09/17/25 11/12/25 History fenofibrate 54 mg tablet 54 mg PO DAILY 09/17/25 11/12/25 History montelukast 10 mg tablet 10 mg PO DAILY 09/17/25 11/12/25 History omeprazole magnesium 2.5 mg oral 10 mg PO DAILY 09/17/25 11/12/25 History suspension,delayed release (Prilosec) Allergies Allergy/AdvReac Type Severity Reaction Status Date / Time No Known Allergies Allergy Verified 11/12/25 08:21 Exam Const: General: no acute distress and alert Orientation/consciousness: patient oriented x3 HENMT: Head: normocephalic and atraumatic Ears: hearing grossly normal bilaterally Face/Nose/Sinus: Normal nares present Mouth: Yes Normal oral and palatal mucosa present Eyes: Periorbital: periorbital findings normal Sclera: sclerae normal EOM: EOMs intact bilaterally Neck: Neck: normal visual inspection, no lymphadenopathy and trachea midline Chest: Chest palpation & inspection: normal inspection of the chest Resp: Effort & Inspection: normal respiratory effort Auscultation: clear to auscultation bilaterally Cardio: Jugular venous distension: no JVD Rate: regular rate Rhythm: regular rhythm Heart sounds: S1 normal heart sound present and S2 normal heart sound present Peripheral pulses: Peripheral pulses 2+ throughout GI: Inspection: normal to inspection GI Palp: Yes Soft to palpation, No Tenderness to palpation present (GI), No Guarding due to palpation present (GI), Yes Hernia present umbilical < 3 cm and No Rebound tenderness present Percussion: Yes normal to percussion Auscultation: normal bowel sounds : General: Yes no CVA tenderness Back/Spine/Pelvis: Back: no CVA tenderness Neuro: General: patient oriented x3, no focal motor deficits and CN's II-XI intact bilaterally Cognition (Neuro): normal cognition Speech: normal speech Motor exam (neuro): 5/5 motor strength present throughout Extrem: General: capillary refill normal and no clubbing, cyanosis or edema Assessment and Plan Assessment and plan (1) Umbilical hernia without obstruction or gangrene: Code(s): K42.9 - Umbilical hernia without obstruction or gangrene Status: Acute Assessment and Plan: I have recommended open umbilical hernia repair with mesh. I have discussed the procedure, risks, benefits, and alternatives with the patient. All questions answered. No changes since last seen in office.
--- NOTE | 2025-11-15 13:08 | WPDANESEPPF ---
Anes - Initial Pre Proc Eval Procedure: Operation Date: 11/15/25 14:30 Proposed Procedures p Open Umbilical Hernia Repair with Mesh - Maurice Tomas DO Date/Time: 11/15/25 13:08 Surgeon: Maurice Tomas DO Pre Op Diagnosis: umb hernia Patient Data Age: 45 Gender: M Height: 1.8 m Weight: 84.09 kg Allergies Allergy/AdvReac Type Severity Reaction Status Date / Time No Known Allergies Allergy Verified 11/12/25 08:21 Home Medications ?Medication ?Instructions ?Recorded ?Confirmed ?Type albuterol sulfate 2 mg tablet 2 mg PO Q8H 09/17/25 11/12/25 History fenofibrate 54 mg tablet 54 mg PO DAILY 09/17/25 11/12/25 History montelukast 10 mg tablet 10 mg PO DAILY 09/17/25 11/12/25 History omeprazole magnesium 2.5 mg oral 10 mg PO DAILY 09/17/25 11/12/25 History suspension,delayed release (Prilosec) Patient hx anesthesia problems: none Family hx anesthesia problems: none Results Review: All pre-operative results and documents have been reviewed as part of the pre-operative evaluation. [facility] Past Medical History Medical History (Updated 09/17/25 @ 09:38 by Vandana Vargas CMA) Cancer Surgical History Surgical History (Updated 09/17/25 @ 09:03 by Namita Mayfield MA) Knee abrasion Stomach tumor (benign) Family History Family History (Updated 09/17/25 @ 09:04 by Namita Mayfield MA) Grandparent Diabetes mellitus Social History Social History (Updated 09/17/25 @ 09:04 by Namita Mayfield MA) Smoking status: Never smoker Drinks per week: 10 Alcohol use details: social drinker weekly Substance use type: does not use Living arrangements: with family Spiritual care concerns: No Anes - Eval Final PreProcedure Day of Procedure 11/15/25 13:08 Patient weight: normal Heart: regular rate and rhythm Lungs: clear to auscultation Airway: Mallampati scale class II Neurological: alert and oriented Last oral intake: >/= 8 hours ASA classification: III Emergent: no Anesthetic plan: proceed Anesthesia type and monitoring: general LMA and standard monitoring Results Review: All pre-operative results and documents have been reviewed as part of the pre-operative evaluation. Informed Consent: The patient's anesthetic plan and its attendant risks and benefits were discussed with the patient/family/POA. Questions were solicited and answers provided to the satisfaction of the patient/family/POA.
[2025-11-15] MEDS: ceFAZolin 2 GM in SODIUM CHLORIDE 0.9% IV 50 ML 100 ML IVPB (13:14)
[2025-11-15] MEDS: BUPIVACAINE/EPINEPHRINE 0.5% 50 ML VIAL 30 ML INFILTRATE (13:30)
--- NOTE | 2025-11-15 13:58 | W.PM.PROC2 ---
Procedure Note - Detailed Date of Procedure 11/15/25 Pre-op Diagnosis Umbilical hernia Post-op Diagnosis Same (2 cm umbilical hernia) Procedure Performed Open 2 cm umbilical hernia repair with 6.[address] hernia patch Surgeon Maurice Tomas, DO Anesthesia General and Local (0.5% bupivacaine with epinephrine) Indications This is a 45-year-old man who presented with an umbilical bulge that he 1st noticed about 4 months ago. He does not have any pain with it, but the bulge has gotten slightly larger. He was found to have a reducible umbilical hernia exam. He did have a prior history of a removal of a stomach tumor that was done open and the scar extends from the upper abdomen to just below the umbilicus. Discussions were made with the patient about treatment options and decision was made to proceed with open umbilical hernia repair with mesh. Findings Open 2 cm umbilical hernia repair with mesh was performed. The patient was found to have a 2 cm umbilical hernia containing some preperitoneal fat. The hernia sac was dissected free and reduced. A 6.[address] hernia patch was placed to repair the defect. The fascia was closed using 0 Ethibond [id number] sutures. No specimens were obtained for pathology. Description of Procedure Procedure as well as risks, benefits, and alternatives were discussed with the patient. Written consent was obtained and placed in chart prior to procedure. Patient was brought back to surgical suite. He was placed supine on operating table. He was then intubated by Anesthesia Department. His abdomen was prepped and draped in sterile fashion using chlorhexidine prep. 0.5% bupivacaine with epinephrine was infiltrated locally around the operative area. A 4 cm curvilinear incision was made just superior to the umbilicus using a 15 blade scalpel. Electrocautery was used for hemostasis and for dissection down through the subcutaneous fat. Hernia sac was encountered and this was carefully freed up from surrounding subcutaneous fat using electrocautery. The hernia sac was freed up all the way down to the level of the fascia. The hernia sac was reduced back into the abdominal cavity. The umbilical stalk was then lifted off of the fascia with electrocautery. The hernia defect was then measured. This was measuring approximately 2 cm. The decision was made to use a 6.[address] hernia patch. The peritoneum was cleared under the fascia circumferentially around the hernia using blunt dissection and electrocautery. Once a wide enough pocket was created for the mesh, the mesh was then placed within this preperitoneal pocket and laid out flat centered on the hernia defect. The mesh appeared to be sitting in proper position. The mesh was then secured along with the fascial closure using 0 Ethibond [id number] sutures in a vertical fashion. A total of 3 sutures were placed. The repair was inspected and appeared secure. 0.5% bupivacaine with epinephrine was infiltrated around the fascia and subcutaneous space. The umbilical stalk was then reapproximated to the fascia using a 3 0 Vicryl simple interrupted suture. The deep dermis was reapproximated using 3 0 Vicryl simple interrupted sutures, and then the skin was approximated using 4 Monocryl running subcuticular suture. Exofin glue was then applied on top. The patient was then awakened from anesthesia, extubated, and transferred to recovery. Implants 6.[address] hernia patch Estimated Blood Loss 5 Complications No immediate complications Condition Stable Disposition Same day [facility] Billing Surgery - Charge Forward: Surgery Billing
[2025-11-15] MEDS: oxyCODONE HCL (*CRX) 5 MG TAB IR PO (15:47)
== END 2025-11-15 15:50 | disposition home or self-care (01) ==
PROVIDERS: PCP Physician Assistant; Visit Provider Surgery
PROC: (CPT 49591; principal; 2025-11-15 14:30)
DX: K42.9 Umbilical hernia without obstruction or gangrene (principal)
CPT/HCPCS: 49591; 93005; J0690; A9270; C1781; J1100; J1885; J2003; J2250; J2405; J2704; J3010; J7120